=== PATIENT | male | born 1975 | race Caucasian/White ===

== ENCOUNTER 2019-09-03 20:28 | Inpatient (IN) | payer SELFPAY ==
[~2019-09-03] VITALS: Ht 188 cm; Wt 128.2 kg
--- NOTE | ~2019-09-03 | OP ---
PATIENT NAME: DEAN HERNANDEZ MEDICAL RECORD: [id number] :73 LOCATION:D.M2 D.2116 ADMISSION DATE:09/03/19 SURGEON: DINH GRAJEDA MD DATE OF OPERATION: 09/04/2019 PROCEDURES: 1. PTCA stent LAD. 2. PTCA stent LAD diagonal. 3. Left heart catheterization. 4. Selective coronary angiography. 5. Left ventriculogram. INDICATION: Non-Q-wave myocardial infarction and coronary artery disease. PROCEDURE IN DETAIL: After informed consent was obtained and after a detailed description of the risks, benefits as well as alternative therapy elected to proceed with angiogram and angioplasty. The right femoral area was prepped and draped in normal sterile fashion. Right femoral artery was cannulated via modified Seldinger technique with placement of 6-Sinhala sheath. All catheters exchanged through this sheath. FINDINGS: Left ventriculogram was performed in standard 30-degree SIMONS view, reveals preserved cardiac wall motion, ejection fraction is 60%. SELECTIVE CORONARY ANGIOGRAPHY: 1. Left main is with no significant angiographic disease. 2. Left anterior descending has a very large diagonal system that is acutely totally occluded. LAD itself has 90% to 95% stenosis. 3. The left circumflex has 90% stenosis in the mid vessel, this feeds the distal right coronary the distal right coronary artery is 100% stenosed, distal right coronary fills via left to right collateral. 4. The right coronary comes off at a very odd angle. The only thing that will engage the right coronary for future reference is an XB LAD 4 guide. PTCA STENT OF THE LAD AND LAD DIAGONAL: The LAD was addressed with a 3.0 x 22 mm Sharif diagonal with a 2.5 x 38 and 2.5 x 22, both Sharif stents. Result was 0% residual stenosis. OVERALL IMPRESSION: Successful percutaneous transluminal coronary angioplasty stent of the left anterior descending, LAD diagonal going from 100% initial stenosis to 0% residual. PLAN: PTCA stent of the left circumflex in a staged fashion due to large amount of contrast use this intervention. TRANSINT:[id number] Voice Confirmation ID: [id number] DOCUMENT ID: [id number] OPERATIVE REPORT [id number] MARYDINH LOCKETT MD CC: [id number] DICTATION DATE: 09/04/19 1257 [place] INSTRUMENT MAKER: 09/04/19 1800 ADM IN [address] [address]
--- NOTE | ~2019-09-03 | HEMODYNAMI ---
PATIENT:DEAN HERNANDEZ MEDICAL RECORD: [id number] : 73 LOCATION:[facility] D.2116 ADMISSION DATE: 09/03/19 Generatedon:09/05/201916:32 Patient name: DEAN HERNANDEZ Patient #: [id number] SSN: [id number] : 1975 Date of study: 09/05/2019 Page: Of Hemodynamic Procedure Report Patient Data Patient Demographics Procedure consent was obtained First Name: DEAN Gender: Male Last Name: MARY : 1975 Patient #: [id number] Age: 43 year(s) Race: SSN: [id number] Additional ID: [id number] Contact details Address: [address] [place] [address] State: [place] City: [facility] Zip code: [address] Past Medical History Allergies: No known allergies Admission Admission Data Admission Date: 09/03/2019 Admission Time: 21:41 Arrival Date: 10/03/2019 Arrival Time: 21:41 Admit Source: Other Insurance Payor: None Room #: D.2116 [facility] #: [id number] Height (in.): 74.02 BSA: 2.52 (m2) Height (cm.): 188 BMI: 36.5 (kg/m2) Weight (lbs.): 284.4 Weight (kg.): 129 Lab Results Lab Result Date: 09/05/2019 Lab Result Time: 0:00 Biochemistry Name Units Result Min Max BUN mg/dl 14 --(--*-)-- 7 18 Creatinine mg/dl 1 --(--*-)-- 0.6 1.3 eGFR ml/min 85.70077 -*(----)-- 90 120 NONAFRICAN CBC Name Units Result Min Max Hemoglobin g/dl 13.8 --(*---)-- 13.5 17.5 Procedure Procedure Types Cath Procedure Diagnostic Procedure Sedation Charges Moderate Sedation up to 15 minutes PCI Procedure Coronary Stent Coronary Stent Initial Hemochron ACT Test Procedure Description Procedure Date Procedure Date: 09/05/2019 Procedure Start Time: 16:19 Procedure End Time: 16:27 Procedure Staff Name Function Emeterio Garnica MD Performing Physician Mariajose Hoyos RT Monitor Star Urias RT Administrative Representative Gloria Gunderson RT Scrub France Deras RN Nurse Procedure Data Cath Procedure Fluoroscopy Diagnostic fluoroscopy Total fluoroscopy Time: 1.7 time: 1.7 min min Diagnostic fluoroscopy Total fluoroscopy dose: 344 dose: 344 mGy mGy Contrast Material Contrast Material Type Amount (ml) Isovue 300 64 Entry Location Entry Primary Successful Side Size Upsize Upsize Entry Closure Succes sful Closure Location (Fr) 1 (Fr) 2 (Fr) Remarks Device Remarks Femoral Left 6 Fr Exoseal artery Short Estimated blood loss: 10 ml Procedure Complications No complications Procedure Medications Medication Administration Route Dosage Oxygen etCO2 Nasal cannula 2 l/min Lidocaine 2% added to field 20 Heparin Flush Bag added to field 2 bags (1000units/500ml NS) 0.9% NaCl I.V. 100 ml/hr Versed I.V. 2 mg Fentanyl I.V. 100 mcg Heparin Bolus I.V. 4000 units Versed I.V. 1 mg Fentanyl I.V. 50 mcg Hemodynamics Rest BSA: 2.52 (m2) HGB: 13.8 (g/dl) O2 Consumption: Estimated: 312.2 (ml/min) O2 Con sumption indexed: Estimated:123.89 (ml/min/m) Heart Rate: 77 (bpm) Snapshots Pre Cath Intra NCS Post Cath Vital Signs Time Heart Resp SPO2 etCO2 NIBP (mmHg) Rhythm Pain Sedation Rate (ipm) (%) (mmHg) Status Level (bpm) 15:37:39 76 18 94 0 154/91(125) NSR 0 (11) 10(A) , No pain 15:41:55 79 13 93 0 147/95(124) NSR 0 (11) 10(A) , No pain 15:46:09 78 16 95 0 149/94(118) NSR 0 (11) 10(A) , No pain 15:50:25 78 15 95 0 152/96(114) NSR 0 (11) 10(A) , No pain 15:54:41 79 11 95 0 170/99(131) NSR 0 (11) 10(A) , No pain 15:58:53 81 14 94 15 150/83(134) NSR 0 (11) 10(A) , No pain 16:03:13 78 18 97 19.5 161/83(102) NSR 0 (11) 10(A) , No pain 16:07:31 72 18 97 33.9 142/89(116) NSR 0 (11) 10(A) , No pain 16:11:47 75 13 96 33.9 135/85(114) NSR 0 (11) 10(A) , No pain 16:16:52 75 13 96 32.4 130/86(113) NSR 0 (11) 10(A) , No pain 16:21:02 75 12 98 33.1 138/88(118) NSR 0 (11) 9(A) , No pain 16:25:16 78 12 94 32.4 141/85(112) NSR 0 (11) 9(A) , No pain 16:31:39 72 14 95 25.6 139/91(115) NSR 0 (11) 10(A) , No pain Medications Time Medication Route Dose Verified Delivered Reason Notes Effectiveness by by 15:49:04 Oxygen etCO2 2 Emeterio Buffie used for Nasal l/min Nahun Deras RN procedure cannula 15:49:11 Lidocaine 2% added 20ml Emeterio Emeterio for local to vial Nahun Garnica MD anesthetic field 15:49:16 Heparin Flush added 2 Emeterio Emeterio used for Bag to bags Nahun Garnica MD procedure (1000units/500ml field NS) 15:49:24 0.9% NaCl I.V. 100 Emeterio Calixtoie Per physician ml/hr Nahun Deras RN 16:15:07 Versed I.V. 2 mg Emeterio Buffie for sedation Nahun Deras RN 16:15:14 Fentanyl I.V. 100 Emeterio Buffie for sedation mcg Nahun Deras RN 16:22:59 Heparin Bolus I.V. 4000 Emeterio Buffie for verif ied units Nahun Deras RN anticoagulation with dr garnica 16:24:08 Versed I.V. 1 mg Emeterio Buffie for sedation Nahun Deras RN 16:24:12 Fentanyl I.V. 50 Emeterio [place] for sedation mcg Nahun Deras RN Procedure Log Time Note 15:23:34 Diagnostic Cath Status : Elective 15:24:15 Informed consent obtained and on chart 15:25:14 Admit Source: Other 15:25:16 Arrival Date: 10/03/2019 9:41:00 PM 15:25:38 Insurance Payor : None 15:25:49 Patient Height : 74.02 inches 15:25:54 Patient Weight : 284.4 lbs 15::19 Lab Result : Hemoglobin 13.8 g/dl 15:: Lab Result : eGFR NONAFRICAN 85.66818 ml/min 15::19 Lab Result : BUN 14 mg/dl 15:: Lab Result : Creatinine 1 mg/dl 15::34 Procedure Status Urgent Heart Cath (IP). 15:36:10 Star Urias RT(R) sent for patient. Start room use. 15:36:12 Time tracking: Regular hours (M-F 7:00 - 5:00) 15:36:17 Plan of Care:Hemodynamics will remain stable., Cardiac rhythm will remain stable., Comfort level will be maintained., Respiratory function will remain adequate., Patient/ family verbilizes understanding of procedure., Procedure tolerated without complication., Recovers from procedure without complications.. 15:36:26 Patient received from Med II to CCL 2 Alert and oriented. Tansferred to table in Supine position. 15:36:29 Warm blankets applied, and cora hugger turned on for patient comfort. 15:36:30 Correct patient and procedure confirmed by team. 15:36:30 ECG and BP/O2 sat monitors applied to patient. 15:36:34 Vital chart was started 15:36:37 Baseline sample Acquired. 15:36:42 Rhythm: sinus rhythm 15:36:44 Full Disclosure recording started 15:36:54 H&P Date Dictated: 09/04/2019 Within 30 days and on chart., H&P Addendum completed by physician on day of procedure. (MUST COMPLETE FOR ALL OUTPATIENTS). 15:37:32 Pre-procedure instructions explained to patient. 15:37:38 Patient NPO since Midnight. 15:37:44 Patient allergic to No known allergies 15:37:48 Is the patient allergic to Iodine/contrast media? No. 15:37:49 Was the patient premedicated? Yes 15:37:50 Is patient on blood thinner?Yes 15:37:54 ACC The patient was administered the following blood thiners within the last 24 hours: ACCPlavix 15:39:33 Patient diabetic? Yes. 15:39:36 If diabetic: On Metformin? Yes 15:39:44 If on Metformin: Last Dose? 09/03/2019 15:39:51 Snore? Yes 15:39:52 Sleep apnea? No 15:40:00 Dentures? No ? 15:40:10 IV patent on arrival in left forearm with 0.9% NaCl at [facility]. 15:40:16 Lab results completed and on chart. 15:40:23 Stress Test: no; N/A ? 15:40:28 Risk of Mortality: 11.4 15:40:31 Risk of blood transfusion: 1.9 15:40:36 Risk of KATHERINE: 6.6. 15:40:40 Left groin area was prepped with chlora-prep and draped in sterile fashion 15:40:41 Alarms reviewed by R. N. 15:40:42 Sharps counted by scrub and verified by R.N. 15:40:45 Physician paged 15:40:51 Maximum allowable contrast dose (3.7 X eGFR X 0.75)235 ml. 15:40:55 2) 60-89 Mildly reduced kidney function, and other findings (as for stage 1) point to kidney disease. 15:49:04 Oxygen 2 l/min etCO2 Nasal cannula was administered by France Deras RN; used for procedure; Verbal order read back and verified. 15:49:11 Lidocaine 2% 20ml vial added to field was administered by Emeterio Garnica MD; for local anesthetic; Verbal order read back and verified. 15:49:16 Heparin Flush Bag (1000units/500ml NS) 2 bags added to field was administered by Emeterio Garnica MD; used for procedure; Verbal order read back and verified. 15:49:24 0.9% NaCl 100 ml/hr I.V. was administered by France Deras RN; Per physician; Verbal order read back and verified. 16:12:54 Physician arrived 16:12:54 --------ALL STOP TIME OUT------ 16:12:56 Final Timeout: patient, procedure, and site verified with staff and physician. All members of the team are in agreement. 16:12:59 Left groin site verified by team. 16:13:04 Fire Safety Assessment: A--An alcohol-based skin anteseptic being used preoperatively., C--Open oxygen or nitrous oxide is being used., D--An ESU, laser, or fiber-optic light is being used. 16:13:18 Physical assessment completed. ASA score P 4 - A patient with severe systemic disease that is a constant threat to life as per Emeterio Garnica MD. 16:13:23 Sedation plan: IV Moderate Sedation Medication:Versed, Fentanyl 16:13:58 Use device set Femoral Dx 16:14:22 Medline Cath Pack ([id number]) opened to sterile field. 16:14:25 ACIST Hand Control (79578) opened to sterile field. 16:14:29 ACIST Manifold (18677) opened to sterile field. 16:14:32 Tegaderm 4 x 4 (1626W) opened to sterile field. 16:14:36 EMERALD Guide Wire (502-231) opened to sterile field. 16:14:36 SHEATH 6FR [place] (GXI421) opened to sterile field. 16:14:37 CHOICE PT Extra Support 182cm wire ([id number]) opened to sterile field. 16:14:38 INFLATOR Merit BasixCompak (XR8408) opened to sterile field. 16:15:07 Versed 2 mg I.V. was administered by France Deras RN; for sedation; Verbal order read back and verified. 16:15:14 Fentanyl 100 mcg I.V. was administered by France eDras RN; for sedation; Verbal order read back and verified. 16:18:10 Zero performed for pressure channel P1 16:19:04 Procedure started. 16:19:42 Local anesthetic to left femerol artery with Lidocaine 2% by Emeterio Garnica MD.INITIAL ACCESS ONLY 16:19:52 A 6 Fr Short sheath was inserted into the Left Femoral artery 16:20:36 GUIDE 6FR EBU 4.5 catheter ([id number]) opened to sterile field. 16:20:50 6 Fr EBU 4.5 guide catheter was inserted over the wire 16:21:54 choice pt ex wire advanced. 16:22:59 Heparin Bolus 4000 units I.V. was administered by France Deras RN; for anticoagulation; verified with dr garnica Verbal order read back and verified. 16:23:15 Wire advanced across lesion. 16:24:08 Versed 1 mg I.V. was administered by France Deras RN; for sedation; Verbal order read back and verified. 16:24:12 Fentanyl 50 mcg I.V. was administered by France Deras RN; for sedation; Verbal order read back and verified. 16:24:39 Place stent Inflation Number: 1 A REBECCA RX 2.75 x 38 stent ([id number]) was prepped and advanced across the Mid CX 90. The stent was deployed at 13 BRANDEN for 0:16 (min:sec) . 16:25:04 EXOSEAL 6Fr (EX600) opened to sterile field. 16:25:10 ACT drawn and resulted at 189 seconds. (normal therapeutic range 180-240 seconds). 16:25:22 Sheath removed intact; hemostasis achieved with Exoseal to the Left Femoral artery. 16:25:24 Procedure ended.(Physican Out) 16:25:43 Fluoroscopy time 01.70 minutes. 16:25:47 Fluoroscopy dose: 344 mGy 16:25:47 Flurop Dose total: 344 16:25:52 Dose Area Product 38718 mGy/cm. 16:25:56 Contrast amount:Isovue 300 64ml. 16:26:01 Maximum allowable dose exceeded? No. 16:26:03 Sharps counted by scrub and verified by R.N. 16:26:05 Insertion/operative site no bleeding no hematoma. 16:26:10 Post left femerol artery:stable 16:26:14 Post Procedure Pulses reassessed and unchanged 16:26:21 Post-procedure physical assessment completed. ASA score P 3 - A patient with severe systemic disease as per Emeterio Garnica MD. 16:26:24 Post procedure rhythm: unchanged. 16:26:29 Estimated blood loss: 10 ml 16:26:30 Post procedure instruction explained to patient.Patient verbalizes understanding. 16:27:06 Procedure type changed to Cath procedure, Diagnostic procedure, Sedation Charges, Moderate Sedation up to 15 minutes, PCI procedure, Coronary Stent, Coronary Stent Initial, Hemochron ACT Test 16:27:08 Procedure and supply charges have been captured, reviewed, submitted and are correct. 16:27:31 Procedure Complication : No complications 16::34 Vital chart was stopped 16:27:38 [facility] Findings: MVD- PCI performed (see procedure note) 16:27:41 See physician's report for complete and final results. 16:27:47 Report given to [facility]. 16:27:54 Patient transfered to [facility] with Bed. 16:27:56 Procedure ended. 16:27:56 Full Disclosure recording stopped 16:28:02 End room use (Document Last) 16:30:48 ACC-PCI Only Patient was given prescriptions, or instructed by Emeterio Garnica MD to start/continue the following medications upon discharge: Plavix Intervention Summary Intervention Notes Time ActionType Lesion and Equipment Used Action# Pressure Duration Attributes 16:24:39 Place stent Mid CX REBECCA RX 2.75 x 1 13 00:16 38 stent ([id number]) Device Usage Item Name Manufacture Quantity Catalog Number Hospital Part Current M inimal Lot# / Charge Number Stock Stock Serial# Code Medline Cath Medline 1 [id number] 19329 990374 5 Pack ([id number]) ACIST Hand Acist 1 94279 583652 316630 406920 5 Control Medical (92299) Systems Inc ACIST Manifold Acist 1 55219 110911 687504 384388 5 (80590) Medical Systems Inc Tegaderm 4 x 4 3M 1 1626W 241092 221374 008387 5 (1626W) EMERALD Guide Cardinal 1 502-455 909372 635927 510274 5 Wire (502-455) Health SHEATH 6FR Terumo 1 [id number] 193625 510090 650294 4 0 [place] (GLJ838) CHOICE PT [place] 1 [id number] 753517 084086 820926 5 Extra Support Scientific 182cm wire ([id number]) INFLATOR Merit Merit 1 [id number] 287834 162277 883991 1 5 K-MOTION Interactive Medical (AE0985) GUIDE 6FR EBU Medtronic 1 [id number] 305179 60211 856051 0 4.5 catheter (SD8GUD91) REBECCA RX 2.75 x Medtronic 1 [id number] 850748 1256787 249710 5 [id number] 38 stent ([id number]) EXOSEAL 6Fr Cardinal 1 EX600 921298 290812 922461 1 0 (EX600) Health Signature Audit [place] Stage Time Signature Unsigned Intra-Procedure 09/05/2019 Mariajose Hoyos 4:31:06 PM RT(R) Intra-Procedure 09/05/2019 France Deras RN 4:31:40 PM Intra-Procedure 09/05/2019 Emeterio Garnica 4:32:07 PM MD Signatures Performing Physician : Signature : Emeterio Garnica MD Date : Time : Monitor : Mariajose Hoyos Signature : RT Date : Time : Nurse : France Deras RN Signature : Date : Time : [address] [address]
--- NOTE | ~2019-09-03 | HEMODYNAMI ---
PATIENT:DEAN HERNANDEZ MEDICAL RECORD: [id number] : 73 LOCATION:[facility] D.2116 ADMISSION DATE: 09/03/19 Generatedon:09/04/201913:01 Patient name: DEAN HERNANDEZ Patient #: [id number] SSN: D OB: 1975 Date of study: 09/04/2019 Page: Of Hemodynamic Procedure Report Patient Data Patient Demographics Procedure consent was obtained First Name: DEAN Gender: Male Last Name: MARY : 1975 Patient #: [id number] Age: 43 year(s) Race: Unknown Additional ID: [id number] Contact details Address: [address] [place] [address] State: [place] City: [facility] Zip code: [address] Admission Admission Data Admission Date: 09/03/2019 Admission Time: 21:41 Room #: D.2116 Procedure Procedure Types Cath Procedure Diagnostic Procedure LHC LHC w/Coronaries Sedation Charges Moderate Sedation up to 15 minutes Moderate Sedation up to 45 minutes PCI Procedure Coronary Stent Coronary Stent Initial Coronary Stent Additional Procedure Description Procedure Date Procedure Date: 09/04/2019 Procedure Start Time: 12:06 Procedure End Time: 12:56 Procedure Staff Name Function Emeterio Garnica MD Performing Physician Gloria Gunderson RT Monitor Erasto Bañuelos RN Nurse Mariajose Hoyos RT Scrub Procedure Data Cath Procedure Fluoroscopy Diagnostic fluoroscopy Total fluoroscopy Time: time: 17.2 min 17.2 min Diagnostic fluoroscopy Total fluoroscopy dose: dose: 3239 mGy 3239 mGy Contrast Material Contrast Material Type Amount (ml) Isovue 300 384 Entry Location Entry Primary Successful Side Size Upsize Upsize Entry Closure Samuel ccessful Closure Location (Fr) 1 (Fr) 2 (Fr) Remarks Device Remarks Radial Right 6 Fr Mechanical artery Short Compression Femoral Right 6 Fr Exoseal artery Short Estimated blood loss: 5 ml Diagnostic catheters Device Type Used For End Catheter Placement DIAGNOSTIC [place] 110cm 5 Multi-vessel Fr catheter ([id number]) Angiography DIAGNOSTIC AR2 MOD 5 Fr Right Coronary catheter (698361S) Angiography DIAGNOSTIC 3DRC 5Fr Right Coronary catheter (285257L) Angiography DIAGNOSTIC AR2 MOD 5 Fr Right Coronary catheter (454134U) Angiography DIAGNOSTIC AL2 5Fr Right Coronary catheter ([id number]) Angiography Procedure Complications No complications Procedure Medications Medication Administration Route Dosage Oxygen etCO2 Nasal cannula 2 l/min Heparin Flush Bag added to field 2 bags (1000units/500ml NS) 0.9% NaCl I.V. 100 ml/hr Lidocaine 2% added to field 20 Radial Cocktail added to field 1 syringe (Verapamil 2mg/Nitro 400mcg/Heparin 1500units) Fentanyl I.V. 50 mcg Versed I.V. 1 mg Fentanyl I.V. 50 mcg Versed I.V. 1 mg Radial Cocktail I.A. 1 syringe (Verapamil 2mg/Nitro 400mcg/Heparin 1500units) Fentanyl I.V. 50 mcg Fentanyl I.V. 50 mcg Heparin Bolus I.V. 5000 units Hemodynamics Rest Heart Rate: 85 (bpm) Pressure Samples Time Site Value (mmHg) Purpose Heart Use Rate(bpm) 12:10 LV 105/21,37 Snapshot 89 Snapshots Pre Cath Intra NCS Post Cath Vital Signs Time Heart Resp SPO2 etCO2 NIBP (mmHg) Rhythm Pain Sedation Rate (ipm) (%) (mmHg) Status Level (bpm) 11:55:08 84 16 95 0 154/102(127) NSR 0 (11) 10(A) , No pain 11:59:32 85 16 94 0 154/101(126) NSR 0 (11) 10(A) , No pain 12:03:54 84 17 93 0 151/94(117) NSR 0 (11) 10(A) , No pain 12:08:16 85 17 92 39.6 143/90(124) NSR 0 (11) 10(A) , No pain 12:12:28 89 17 94 41.8 136/84(111) NSR 0 (11) 9(A) , No pain 12:16:42 84 16 95 8.2 130/81(109) NSR 0 (11) 9(A) , No pain 12:21:00 78 16 93 15.6 133/74(103) NSR 0 (11) 9(A) , No pain 12:25:23 81 16 95 9.7 124/77(104) NSR 0 (11) 9(A) , No pain 12:29:38 79 19 94 30.6 130/81(101) NSR 0 (11) 9(A) , No pain 12:33:59 80 16 94 29.8 131/79(102) NSR 0 (11) 9(A) , No pain 12:38:17 80 17 95 38.1 124/78(111) NSR 0 (11) 9(A) , No pain 12:42:35 80 17 95 41.1 130/74(97) NSR 0 (11) 9(A) , No pain 12:46:55 78 17 96 29.1 137/79(106) NSR 0 (11) 9(A) , No pain 12:51:15 79 17 96 43.3 141/80(109) NSR 0 (11) 9(A) , No pain 12:54:34 78 11 96 40.3 139/80(110) NSR 0 (11) 9(A) , No pain Medications Time Medication Route Dose Verified Delivered Reason Not es Effectiveness by by 11:54:18 Oxygen etCO2 2 l/min Emeterio Maurer Per physician Nasal Nahun Bañuelos RN cannula 11:54:28 Heparin Flush added 2 bags Emeterio Maurer used for Bag to Nahun Bañuelos RN procedure (1000units/500ml field NS) 11:54:39 0.9% NaCl I.V. 100 Emeterio Maurer Per physician ml/hr Nahun Bañuelos RN 11:54:47 Lidocaine 2% added 20ml Emeterio Maurer for local to vial Nahun Bañuelos RN anesthetic field 12:05:50 Radial Cocktail added 1 Emeterio Maurer used for (Verapamil to syringe Nahun Bañuelos RN procedure 2mg/Nitro field 400mcg/Heparin 1500units) 12:05:59 Fentanyl I.V. 50 mcg Emeterio Maurer for sedation Nahun Bañuelos RN 12:06:07 Versed I.V. 1 mg Emeterio Maurer for sedation Nahun Bañuelos RN 12:09:28 Fentanyl I.V. 50 mcg Emeterio Maurer for sedation Nahun Bañuelos RN 12:09:33 Versed I.V. 1 mg Emeterio Maurer for sedation Nahun Bañuelos RN 12:09:41 Radial Cocktail I.A. 1 Emeterio Storm for (Verapamil syringe Nahun Garnica MD vasodilation 2mg/Nitro 400mcg/Heparin 1500units) 12:28:50 Fentanyl I.V. 50 mcg Emeterio Maurer for sedation Nahun Bañuelos RN 12:31:43 Fentanyl I.V. 50 mcg Emeterio Maurer for sedation Nahun Bañuelos RN 12:31:55 Heparin Bolus I.V. 5000 Emeterio Maurer for units Nahun Bañuelos RN anticoagulation Procedure Log Time Note 11:27:32 Procedure Status Urgent Heart Cath (IP). 11:27:36 Gloria Gunderson RT(R) sent for patient. Start room use. 11:27:39 Time tracking: Call back (After hours or weekends) 11:27:48 Plan of Care:Hemodynamics will remain stable., Cardiac rhythm will remain stable., Comfort level will be maintained., Respiratory function will remain adequate., Patient/ family verbilizes understanding of procedure., Procedure tolerated without complication., Recovers from procedure without complications.. 11:28:58 2) 60-89 Mildly reduced kidney function, and other findings (as for stage 1) point to kidney disease. 11:29:25 Maximum allowable contrast dose (3.7 X eGFR X 0.75)235 ml. 11:42:18 Risk of Mortality: 11.4 11:42:23 Risk of blood transfusion: 1.9 11:42:27 Risk of KATHERINE: 6.6 11:47:00 Patient received from Med II to CCL 1 Alert and oriented. Tansferred to table in Supine position. 11:47:03 Signed procedure consent form obtained from patient. 11:47:04 Warm blankets applied, and cora hugger turned on for patient comfort. 11:47:04 Correct patient and procedure confirmed by team. 11:47:05 ECG and BP/O2 sat monitors applied to patient. 11:53:47 Vital chart was started 11:53:49 Baseline sample Acquired. 11:53:53 Rhythm: sinus rhythm 11:53:55 Full Disclosure recording started 11:54:18 Oxygen 2 l/min etCO2 Nasal cannula was administered by Erasto Bañuelos RN; Per physician; Verbal order read back and verified. 11:54:28 Heparin Flush Bag (1000units/500ml NS) 2 bags added to field was administered by Erasto Bañuelos RN; used for procedure; Verbal order read back and verified. 11:54:39 0.9% NaCl 100 ml/hr I.V. was administered by Erasto Bañuelos RN; Per physician; Verbal order read back and verified. 11:54:47 Lidocaine 2% 20ml vial added to field was administered by Erasto Bañuelos RN; for local anesthetic; Verbal order read back and verified. 11:57:54 Baseline sample Acquired. 12:00:51 H&P Date Dictated: 09/04/2019 New H&P dictated by physician.. 12:00:53 Pre-procedure instructions explained to patient. 12:00:54 Pre-op teaching completed and patient verbalized understanding. 12:00:55 Family unavailable. 12:01:03 Is the patient allergic to Iodine/contrast media? No. 12:01:05 Was the patient premedicated? No 12:01:06 Is patient on blood thinner?Yes 12:01:10 ACC The patient was administered the following blood thiners within the last 24 hours: ACCAspirin, ACCPlavix 12:01:12 Patient diabetic? Yes. 12:01:18 If diabetic: On Metformin? Yes 12:01:27 If on Metformin: Last Dose? 09/02/2019 12:01:31 Previous problem with sedation/anesthesia? No ? 12:01:33 Snore? Yes 12:01:34 Sleep apnea? No 12:01:35 Deviated septum? No 12:01:35 Opens mouth fully? Yes 12:01:36 Sticks out tongue? Yes 12:01:38 Airway obstruction? No ? 12:01:41 Dentures? No ? 12:01:46 Pre procedure: right dorsailis pedis pulse 2+ Normal; easily identifiable; not easily obliterated 12:01:48 Pre procedure: left dorsailis pedis pulse 2+ Normal; easily identifiable; not easily obliterated 12:01:50 Patient pain scale 0/10 ?. 12:01:56 IV patent on arrival in left forearm with 0.9% NaCl at [facility]. 12:02:01 Lab results completed and on chart. 12:02:06 Right Radial & Right Groin area was prepped with chlora-prep and draped in sterile fashion 12:02:07 Alarms reviewed by R. N. 12:02:07 Sharps counted by scrub and verified by Blade 12:02:10 Physician arrived 12:02:10 --------ALL STOP TIME OUT------ 12:02:11 Final Timeout: patient, procedure, and site verified with staff and physician. All members of the team are in agreement. 12:02:13 Right Radial & Right Groin site verified by team. 12:02:17 Fire Safety Assessment: A--An alcohol-based skin anteseptic being used preoperatively., C--Open oxygen or nitrous oxide is being used., D--An ESU, laser, or fiber-optic light is being used. 12:02:20 Physical assessment completed. ASA score P 2 - A patient with mild systemic disease as per Emeterio Garnica MD. 12:02:23 Sedation plan: IV Moderate Sedation Medication:Versed, Fentanyl 12:02:26 Use device set Radial Dx or PCI 12:02:28 ACIST Syringe (78868) opened to sterile field. 12:02:28 Medline Cath Pack ([id number]) opened to sterile field. 12:02:29 Bag Decanter (2002S) opened to sterile field. 12:02:29 ACIST Hand Control (33714) opened to sterile field. 12:02:29 ACIST Manifold (05636) opened to sterile field. 12:02:30 Tegaderm 4 x 4 (1626W) opened to sterile field. 12:02:30 MBrace Wrist Support (297459754) opened to sterile field. 12:02:33 SHEATH 6FR RAIN (3246740) opened to sterile field. 12:02:34 EMERALD Guide Wire (561-262) opened to sterile field. 12:05:50 Radial Cocktail (Verapamil 2mg/Nitro 400mcg/Heparin 1500units) 1 syringe added to field was administered by Erasto Bañuelos RN; used for procedure; Verbal order read back and verified. 12:05:57 Procedure started. 12:05:59 Fentanyl 50 mcg I.V. was administered by Erasto Bañuelos RN; for sedation; Verbal order read back and verified. 12:06:01 Local anesthetic to right radial artery with Lidocaine 2% by Emeterio Garnica MD.INITIAL ACCESS ONLY 12:06:07 Versed 1 mg I.V. was administered by Erasto Bañuelos RN; for sedation; Verbal order read back and verified. 12:06:43 A 6 Fr Short sheath was inserted into the Right Radial artery 12:07:46 Zero performed for pressure channel P1 12:08:35 A DIAGNOSTIC [place] 110cm 5 Fr catheter (353686) was advanced over the wire and used for Multi-vessel Angiography. 12:09:28 Fentanyl 50 mcg I.V. was administered by Erasto Bañuelos RN; for sedation; Verbal order read back and verified. 12:09:33 Versed 1 mg I.V. was administered by Erasto Bañuelos RN; for sedation; Verbal order read back and verified. 12:09:41 Radial Cocktail (Verapamil 2mg/Nitro 400mcg/Heparin 1500units) 1 syringe I.A. was administered by Emeterio Garnica MD; for vasodilation; Verbal order read back and verified. 12:10:49 LV hemodynamics recorded. 12:10:50 LV gram done using SIMONS 12:10:52 Injector settings: Ml/sec: 5, Volume: 15, 12:10:58 EF : 55 % 12:11:01 LCA angiography performed. 12:11:04 Injector settings: Ml/sec: 3, Volume: 6, 12:13:56 Catheter removed. 12:13:59 A DIAGNOSTIC AR2 MOD 5 Fr catheter (768183O) was advanced over the wire and used for Right Coronary Angiography. 12:14:42 GUIDE 6FR XBLAD 4.0 catheter ([id number]) opened to sterile field. 12:14:42 CHOICE PT Extra Support 182cm wire ([id number]) opened to sterile field. 12:14:43 INFLATOR Merit BasixCompak (XT2235) opened to sterile field. 12:17:09 Catheter removed. unable to cannulate vessel. 12:17:29 A DIAGNOSTIC 3DRC 5Fr catheter (737624K) was advanced over the wire and used for Right Coronary Angiography. 12:19:01 Catheter removed. unable to cannulate vessel. 12:19:13 Local anesthetic to right femoral artery with Lidocaine 2% by Emeterio Garnica MD.ADDITIONAL ACCESS 12:19:25 SHEATH 6FR Butler (EQG110) opened to sterile field. 12:19:36 A 6 Fr Short sheath was inserted into the Right Femoral artery 12:20:38 A DIAGNOSTIC AR2 MOD 5 Fr catheter (082883S) was advanced over the wire and used for Right Coronary Angiography. 12:20:54 Catheter removed. unable to cannulate vessel. 12:21:26 A DIAGNOSTIC AL2 5Fr catheter (046680Z) was advanced over the wire and used for Right Coronary Angiography. 12:23:01 Catheter removed. unable to cannulate vessel. 12:24:43 GUIDE 6FR 3DRIGHT catheter (CH50IDMEAL) opened to sterile field. 12:25:02 6 Fr 3d right guide catheter was inserted over the wire 12:25:06 Catheter removed. unable to cannulate vessel. 12:25:21 GUIDE 6FR AL 2.0 catheter (CY5LK53) opened to sterile field. 12:26:13 6 Fr al 2 guide catheter was inserted over the wire 12:27:00 Guide Catheter removed. unable to cannulate vessel. 12:27:30 GUIDE 6FR MB 2 catheter (LA6MB2) opened to sterile field. 12:28:04 Guide Catheter removed. unable to cannulate vessel. 12:28:17 GUIDE 6FR LCB catheter (LA6LCB) opened to sterile field. 12:28:50 Fentanyl 50 mcg I.V. was administered by Erasto Bañuelos RN; for sedation; Verbal order read back and verified. 12:29:04 6 Fr lcb guide catheter was inserted over the wire 12:29:51 Guide Catheter removed. unable to cannulate vessel. 12:29:57 6 Fr xblad 4 guide catheter was inserted over the wire 12:30:19 ACCDominant side:Co-Dominant 12:30:38 RCA angiography performed. ::43 Injector settings: Ml/sec: 3, Volume: 6, ::43 Fentanyl 50 mcg I.V. was administered by Erasto Bañuelos RN; for sedation; Verbal order read back and verified. 12:31:55 Heparin Bolus 5000 units I.V. was administered by Erasto Bañuelos RN; for anticoagulation; Verbal order read back and verified. 12:32:20 choice pt wire advanced. 12:34:36 Inflate balloon Inflation number: 1 A EUPHORA 2.5 x 30 Balloon ([id number]) was prepped and advanced across the 1st Diag 100, then inflated to 13 BRANDEN for 0:10 (min:sec) 0. 12:34:42 Balloon removed over the wire. 12:36:00 Place stent Inflation Number: 2 A REBECCA RX 2.5 x 38 stent ([id number]) was prepped and advanced across the 1st Diag 100. The stent was deployed at 11 BRANDEN for 0:10 (min:sec) 0. 12:36:30 Stent catheter was removed intact over wire. 12:36:54 CHOICE PT Extra Support 182cm wire ([id number]) opened to sterile field. 12:37:48 2nd choice pt extra support wire advanced down lad 12:41:12 both choice pt wires removed 12:42:22 WHISPER 190cm wire ([id number]) opened to sterile field. 12:42:35 whisper wire advanced. 12:45:48 Place stent Inflation Number: 1 A REBECCA RX 3.0 x 22 stent ([id number]) was prepped and advanced across the Prox LAD 90. The stent was deployed at 17 BRANDEN for 0:10 (min:sec) 0. 12:46:58 Stent catheter was removed intact over wire. 12:47:06 Wire redirected to diagonal. 12:47:31 ACT drawn and resulted at OOR seconds. (normal therapeutic range 180-240 seconds). 12:48:12 Inflation number: 3 The EUPHORA 2.5 x 30 Balloon ([id number]) was reinflated across the 1st Diag 0, to 13 BRANDEN for 0:10 (min:sec) . 12:49:03 Balloon removed over the wire. 12:50:02 Place stent Inflation Number: 4 A REBECCA RX 2.75 x 22 stent ([id number]) was prepped and advanced across the 1st Diag 95. The stent was deployed at 13 BRANDEN for 0:10 (min:sec) 0. 12:51:34 ZEPHYR REGULAR TR BAND (815873) opened to sterile field. 12:51:45 Tegaderm 4 x 4 (1626W) opened to sterile field. 12:51:46 EXOSEAL 6Fr (EX600) opened to sterile field. 12:52:47 Stent catheter was removed intact over wire. 12:52:48 Wire removed. 12:52:48 Guide catheter removed. 12:52:57 Sheath removed intact; hemostasis achieved with Mechanical Compression to the Right Radial artery. 12:53:05 Sheath removed intact; hemostasis achieved with Exoseal to the Right Femoral artery. 12:53:23 Procedure ended.(Physican Out) 12:53:40 Fluoroscopy time 17.20 minutes. 12:53:45 Fluoroscopy dose: 3239 mGy 12:53:45 Flurop Dose total: 3239 12:53:57 Dose Area Product 183878 mGy/cm. 12:54:16 Contrast amount:Isovue 300 384ml. 12:54:21 Maximum allowable dose exceeded? Yes. 12:54:32 Sharps counted by scrub and verified by R.N. 12:54:45 [place] band inflated with 10cc of air. 12:54:46 Insertion/operative site no bleeding no hematoma. 12:54:54 Post-op/insertion site Right Femoral artery dressed using a 4 x 4 and Tegaderm. 12:55:00 Post right radial artery:stable 12:55:02 Post Procedure Pulses reassessed and unchanged 12:55:04 Post procedure rhythm: unchanged. 12:55:07 Estimated blood loss: 5 ml 12:55:09 Post procedure instruction explained to patient.Patient verbalizes understanding. 12:55:09 Patient needs reinforcement of post procedure teaching. 12:55:37 Procedure type changed to Cath procedure, Diagnostic procedure, LHC, [facility] w/Coronaries, Sedation Charges, Moderate Sedation up to 15 minutes, Moderate Sedation up to 45 minutes, PCI procedure, Coronary Stent, Coronary Stent Initial, Coronary Stent Additional 12:55:38 Procedure and supply charges have been captured, reviewed, submitted and are correct. 12:55:42 Procedure Complication : No complications 12:55:45 Vital chart was stopped 12:55:47 [facility] Findings: MVD- PCI performed (see procedure note) 12:55:50 Operative report dictated upon procedure completion. 12:55:51 See physician's report for complete and final results. 12:55:53 Report given to [facility]. 12:55:55 Patient transfered to [facility] with Stretcher. 12:55:59 Procedure ended. 12:55:59 Full Disclosure recording stopped 12:56:07 ACC-PCI Only Patient was given prescriptions, or instructed by Emeterio Garnica MD to start/continue the following medications upon discharge: Plavix 12:56:09 End room use (Document Last) 12:58:03 End room use (Document Last) 12:58:32 End room use (Document Last) Intervention Summary Intervention Notes Time ActionType Lesion and Equipment Used Action# Pressure Duration Attributes 12:34:36 Inflate 1st Diag EUPHORA 2.5 x 1 13 00:10 balloon 30 Balloon ([id number]) 12:36:00 Place stent 1st Diag REBECCA RX 2.5 x 2 11 00:10 38 stent ([id number]) 12:45:48 Place stent Prox LAD REBECCA RX 3.0 x 1 17 00:10 22 stent ([id number]) 12:48:12 Reinflate 1st Diag EUPHORA 2.5 x 3 13 00:10 balloon 30 Balloon ([id number]) 12:50:02 Place stent 1st Diag REBECCA RX 2.75 x 4 13 00:10 22 stent ([id number]) Device Usage Item Name Manufacture Quantity Catalog Number Hospital Part Current M inimal Lot# / Charge Number Stock Stock Serial# Code ACIST Syringe Acist 1 81427 942807 623034 700599 2 0 (89435) Medical Systems Inc Medline Cath Medline 1 [id number] 857157 29937 206729 5 Pack ([id number]) Bag Decanter Microtek 1 2001S 627508 71206 873446 5 (2001S) Medical Inc. ACIST Hand Acist 1 48212 433275 523311 082578 5 Control Medical (98585) Systems Inc ACIST Manifold Acist 1 38138 202752 886694 281761 5 (67734) Medical Systems Inc Tegaderm 4 x 4 3M 2 1626W 574883 824002 235879 5 (1626W) MBrace Wrist Advanced 1 140-0250-00 933183 99073 938234 5 Support Vascular (747318289) Dynamics SHEATH 6FR Cardinal 1 4152423 200012 9349816 258901 5 RAIN (5848386) Health EMERALD Guide Cardinal 1 502-455 976053 360859 628700 5 Wire (482-720) Health DIAGNOSTIC Terumo 1 52-1952 730043 728856 444197 5 [place] 110cm 5 Fr catheter (063607) DIAGNOSTIC AR2 Cardinal 1 228697G 493835 961058 039074 2 0 MOD 5 Fr Health catheter (286706P) GUIDE 6FR Cardinal 1 60937455 116119 491710 807239 3 XBLAD 4.0 Health catheter (65848177) CHOICE PT Winifred 2 [id number] 329257 843216 890469 5 Extra Support Scientific 182cm wire (1276619G0) INFLATOR Merit Merit 1 MP9206 831940 380961 943725 1 5 [facility] (GV1528) DIAGNOSTIC Cardinal 1 104568P 030544 206073 872443 9 3DRC 5Fr Health catheter (085151T) SHEATH 6FR Terumo 1 JUF224 855408 202513 371771 4 0 Butler (VMO031) DIAGNOSTIC AL2 Cardinal 1 948240Q 192195 036767 124167 1 5 5Fr catheter Health (599811H) GUIDE 6FR Medtronic 1 [id number] 792820 115072 195374 1 3DRIGHT catheter ([id number]) GUIDE 6FR AL Medtronic 1 [id number] 188790 59095 894021 1 2.0 catheter (DH3KV45) GUIDE 6FR MB 2 Medtronic 1 LA6MB2 458120 60487 435028 1 catheter (LA6MB2) GUIDE 6FR LCB Medtronic 1 LA6LCB 323799 49859 352947 1 catheter (LA6LCB) EUPHORA 2.5 x Medtronic 1 [id number] 716321 367714 910896 5 [id number] 30 Balloon (CSJ7414N) REBECCA RX 2.5 x Medtronic 1 [id number] 355989 0194744 366183 5 [id number] 38 stent ([id number]) WHISPER 190cm [place] 1 [id number] 647787 273991 492785 5 wire Vascular (8911932FA) REBECCA RX 3.0 x Medtronic 1 [id number] 963969 7095111 370909 5 [id number] 22 stent ([id number]) REBECCA RX 2.75 x Medtronic 1 [id number] 417960 5001189 833458 5 [id number] 22 stent ([id number]) ZEPHYR REGULAR Cardinal 1 945242 669398 8600720 066643 5 TR BAND [employer] (357966) EXOSEAL 6Fr Cardinal 1 EX600 723617 308804 188332 1 0 (EX600) Health Signature Audit [place] Stage Time Signature Unsigned Intra-Procedure 09/04/2019 Gloria Gunderson 12:58:03 PM RT(R) Intra-Procedure 09/04/2019 Erasto Bañuelos 12:58:32 PM RN Intra-Procedure 09/04/2019 Emeterio Garnica 1:01:[address] [address]
--- NOTE | ~2019-09-03 | OP ---
PATIENT NAME: DEAN HERNANDEZ MEDICAL RECORD: [id number] :73 LOCATION:D.M2 D.2116 ADMISSION DATE:09/03/19 SURGEON: DINH GRAJEDA MD DATE OF OPERATION: 09/05/2019 PROCEDURES: 1. PTCA stent left circumflex. 2. Selective coronary angiography. INDICATION: Angina, coronary artery disease, non-Q-wave myocardial infarction. PROCEDURE IN DETAIL: After informed consent was obtained and after a detailed description of the risks, benefits as well as alternative therapies, the patient elected to proceed with angiogram and angioplasty. The left femoral area was prepped and draped in normal sterile fashion. Left femoral artery was cannulated via modified Seldinger technique with placement of 6-[place] sheath. All catheters exchanged through this sheath. FINDINGS: The left circumflex has 90% stenosis throughout the first obtuse marginal. This was addressed with a 2.75 x 38 mm [place]. Result was 0% residual stenosis. OVERALL IMPRESSION: Successful percutaneous transluminal angioplasty stent of the left circumflex going from 90% initial stenosis to 0% residual. TRANSINT:[id number] Voice Confirmation ID: [id number] DOCUMENT ID: [id number] DINH GRAJEDA MD CC: [id number] DICTATION DATE: 09/05/19 1634 PERSONAL SECURITY SPECIALIST: 09/05/19 1819 ADM IN [facility] [address] [place] [address]
--- NOTE | ~2019-09-03 | CN ---
PATIENT NAME:DEAN HERNANDEZ MEDICAL RECORD: [id number] : 73 LOCATION:[facility] D.2116 ADMIT DATE: 09/03/19 ACCOUNT: [id number] CONSULTING PHYSICIAN: DINH GRAJEDA MD REFERRING PHYSICIAN: ADEOLA MCCARTNEY MD DATE OF CONSULTATION: 09/04/2019 CARDIOLOGY CONSULTATION DIAGNOSES: 1. Non-Q-wave myocardial infarction. 2. Coronary artery disease. 3. Hypertension. 4. Hyperlipidemia. 5. Ewo-ixhbgpw-xpkcxbvaz diabetes. HISTORY OF PRESENT ILLNESS: Mr. Hernandez has no history of ischemic heart disease. He had an episode of chest pain last week, presented to the Emergency Room and was told that this was possibly food poisoning. He did well until last night and had a recurrent episode of severe chest discomfort, radiation to his left arm. His troponin is positive for non-Q-wave myocardial infarction. He is not having any pain now. He did have some ventricular dysrhythmias overnight, was given Lopressor. He has a history of hypertension, hyperlipidemia as well as clh-ufnsgju-qxrwjwyst diabetes. PHYSICAL EXAMINATION: CONSTITUTIONAL/GENERAL APPEARANCE: Well nourished, well developed, appears stated age. EYES: Lids and conjunctivae noninjected. No discharge. No pallor. ENT: Lips within normal limit. No cyanosis. No pallor. NECK: Carotid arteries, bilateral normal upstroke. No bruits. No thrills. No jugular venous pressure or distention. CERVICAL LYMPH NODES: Nontender. Nonenlarged. THYROID: Not enlarged. No nodules. CARDIOVASCULAR: Precordial exam, nondisplaced. No heaves or pericardial thrills. Rate and rhythm, regular. Heart sounds, normal S1, normal S2. No S3, no gallop, no rub. Systolic murmur, not heard. Diastolic murmur, not heard. RESPIRATORY: Respiratory effort, unlabored. Normal curvature. No thoracic deformity. No chest wall tenderness. Percussion, resonant. Auscultation, clear. No wheezes, no rales, no rhonchi. ABDOMEN: Soft, nondistended, nontender. No abdominal pain, no vomiting and normal appetite. MUSCULOSKELETAL: No joint tenderness, normal gait, normal tone. SKIN: Warm and dry. OVERALL IMPRESSION: Non-Q-wave myocardial infarction. We will proceed with coronary angiography. Further care depends upon the findings of the angiography. TRANSINT:[id number] Voice Confirmation ID: [id number] DOCUMENT ID: [id number] CONSULT REPORT [id number] DEAN HERNANDEZ JEFFREY MD CC: [id number] DICTATION DATE: 09/04/19 1029 REGIONAL VICE PRESIDENT LIFE SALES: 09/04/19 1149 ADM IN [place] [address] [place] [address]
[2019-09-03] MEDS ORDERED: GLUCOPHAGE500 MG PO (20:32)
[2019-09-03 21:03] LABS: BASOPHILS 0.1 % (0-2); EOSINOPHILS 0.4 % (0-7); HEMATOCRIT 44.8 % (42.0-54.0); HEMOGLOBIN 15.1 g/dL (13.5-17.5); IMMATURE GRANULOCYTES 0.6 % (0-5); LYMPHOCYTES 8.1 % (15-50); MCH 28.3 pg (26.0-34.0); MCHC 33.7 g/dL (31.0-37.0); MCV 83.9 fL (80.0-100.0); MEAN PLATELET VOLUME 11.3 fL (7.4-10.4); MONOCYTES 4.4 % (2-11); NEUTROPHILS 86.4 % (40-80); PLATELET COUNT 186 10x3/uL (130-400); RBC 5.34 10x6/uL (4.20-6.10); RDW 13.4 % (11.5-14.5)
--- NOTE | 2019-09-03 21:09 | NUR ---
PT REPORTS SIMILAR INCIDENT LAST WEEK WITH N/V, DIZZINESS, AND CP. PT REPORTS HE WAS SEEN AT ANOTHER FACILITY AND DX WITH FOOD POISONING.
[2019-09-03 21:10] VITALS: BP 141/99
[2019-09-03 21:10] LABS: APTT 31.9 SECONDS (22.8-39.4); CALC OSMOLALITY 287 mosm/kg (275-300); CALCIUM 8.3 mg/dL (8.5-10.1); CARBON DIOXIDE 24.2 mmol/L (21.0-32.0); CHLORIDE - SERUM 102 mmol/L (98-107); CREATININE - SERUM 1.2 mg/dL (0.6-1.3); GLUCOSE 331 mg/dL (74-106); INR 1.24 (0.85-1.17); SODIUM 137 mmol/L (136-145); UREA NITROGEN 14 mg/dL (7-18); eGFR NON AFRICAN AMERICAN 70 mL/min (90-120)
[2019-09-03 21:32] LABS: ALBUMIN 3.3 g/dL (3.4-5.0); ALKALINE PHOSPHATASE 92 U/L (46-116); ALT (SGPT) 42 U/L (10-68); BILIRUBIN - TOTAL 0.65 mg/dL (0.2-1.3); CKMB 8.8 U/L (0.0-3.6); CREATINE KINASE 161 UL (21-232); MAGNESIUM - SERUM 1.6 mg/dL (1.8-2.4); PROTEIN - SERUM 7.4 g/dL (6.4-8.2)
[2019-09-03 21:33] LABS: TROPONIN-I 0.296 ng/mL (0.000-0.060)
[2019-09-03 22:42] LABS: CKMB 14.4 U/L (0.0-3.6); CREATINE KINASE 201 UL (21-232)
[2019-09-03 23:10] VITALS: BP 145/97; BMI 36.3
--- NOTE | 2019-09-03 23:16 | NUR ---
RECIEVED REPORT FROM YONG AGOSTO IN ER. ARRIVED TO FLOOR IN W/C. ALERT AND ORIENTED X4. UP AD MIGUEL ANGEL TO B/R. ORIENTED TO ROOM, MEAL TIMES AND SHIFT CHANGES. REPORTS HX OF HTN,HYPOTHYROIDISM AND TYPE 2 DM. ALSO, STATES HE HAS'NT TAKEN MEDICATION FOR DIABETIC IN A LONG TIME . UNTIL RECENTLY STARTED BACK TAKING METFORMIN. HAS'NT TAKEN B/P MEDICATION OR THYROID MEDICINE IN YEARS. B/P ELEVATED. EDUCATED ON RISK AND BENIFITS OF TAKING MEDICATIONS AND TAKING CARE OF HIS SELF. VERBAL AGREEMENT GIVEN. ALSO, STATES HE DOES'NT HAVE A DOCTOR.
[2019-09-04 05:31] LABS: CKMB 31.2 U/L (0.0-3.6)
[2019-09-04 05:32] LABS: CREATINE KINASE 257 UL (21-232); TROPONIN-I 6.631 ng/mL (0.000-0.060)
[2019-09-04 06:07] LABS: BASOPHILS 0.1 % (0-2); EOSINOPHILS 2.3 % (0-7); HEMATOCRIT 41.8 % (42.0-54.0); IMMATURE GRANULOCYTES 0.5 % (0-5); LYMPHOCYTES 17.9 % (15-50); MCH 28.2 pg (26.0-34.0); MCHC 33.5 g/dL (31.0-37.0); MCV 84.1 fL (80.0-100.0); MEAN PLATELET VOLUME 11.7 fL (7.4-10.4); NEUTROPHILS 73.2 % (40-80); PLATELET COUNT 204 10x3/uL (130-400); RBC 4.97 10x6/uL (4.20-6.10); RDW 13.5 % (11.5-14.5); WBC 13.2 10x3/uL (4.8-10.8)
[2019-09-04 06:16] LABS: ALT (SGPT) 43 U/L (10-68); CALCIUM 8.5 mg/dL (8.5-10.1); CARBON DIOXIDE 27.1 mmol/L (21.0-32.0); CHLORIDE - SERUM 105 mmol/L (98-107); CHOL - HDL RATIO 6.6 ratio (2.3-4.9); CHOLESTEROL, TOTAL 165 mg/dL (0-200); HDL CHOLESTEROL 25 mg/dL (32-96); LDL CHOLESTEROL 115 mg/dL (0-100); LDL-HDL RATIO 4.6 ratio (1.5-3.5); POTASSIUM - SERUM 3.9 mmol/L (3.5-5.1); SODIUM 138 mmol/L (136-145); TRIGLYCERIDE 126 mg/dL (30-200); UREA NITROGEN 15 mg/dL (7-18); eGFR NON AFRICAN AMERICAN 86 mL/min (90-120)
[2019-09-04 06:17] LABS: CALC OSMOLALITY 281 mosm/kg (275-300); GLUCOSE 180 mg/dL (74-106)
--- NOTE | 2019-09-04 07:15 | NUR ---
RECEIVED PT IN BED EYES CLOSED RESP UNLABORED SKIN W/D COLOR WNL NAD NOTED
[2019-09-04 08:29] VITALS: BP 168/96
[2019-09-04 09:51] LABS: CKMB 25.7 U/L (0.0-3.6); CREATINE KINASE 209 UL (21-232)
[2019-09-04 09:54] LABS: TROPONIN-I 4.728 ng/mL (0.000-0.060)
[2019-09-04 10:28] VITALS: Ht 188 cm; Wt 128.2 kg
[2019-09-04 12:07] VITALS: BP 160/96
--- NOTE | 2019-09-04 17:10 | NUR ---
REFUSES TO WEAR SCDS
[2019-09-04 20:00] VITALS: BP 137/84
--- NOTE | 2019-09-04 20:09 | NUR ---
RECIEVED UP IN BED WITH HOB ELEVATED. ALERT AND ORIENTED X4. HAS A FLAT AFFECT. IV TO LEFT AC SL.. DSG TO RIGHT GROIN CDI. TELEMETRY IN PLACE. CONT TO MONITOR BLOOD SUGARS. DENIES ANY PAIN OR NEEDS AT THIS TIME.
[2019-09-05] VITALS: BP 145/91
[2019-09-05 04:00] VITALS: BP 161/98
[2019-09-05 05:12] LABS: BASOPHILS 0.1 % (0-2); EOSINOPHILS 2.7 % (0-7); HEMATOCRIT 41.6 % (42.0-54.0); HEMOGLOBIN 13.8 g/dL (13.5-17.5); IMMATURE GRANULOCYTES 0.5 % (0-5); MCH 28.3 pg (26.0-34.0); MCHC 33.2 g/dL (31.0-37.0); MCV 85.2 fL (80.0-100.0); MEAN PLATELET VOLUME 10.8 fL (7.4-10.4); MONOCYTES 6.7 % (2-11); PLATELET COUNT 198 10x3/uL (130-400); RBC 4.88 10x6/uL (4.20-6.10); RDW 13.6 % (11.5-14.5); WBC 10.2 10x3/uL (4.8-10.8)
[2019-09-05 05:25] LABS: ALKALINE PHOSPHATASE 67 U/L (46-116); ALT (SGPT) 42 U/L (10-68); BILIRUBIN - TOTAL 0.65 mg/dL (0.2-1.3); CALC OSMOLALITY 276 mosm/kg (275-300); CALCIUM 8.5 mg/dL (8.5-10.1); CARBON DIOXIDE 26.9 mmol/L (21.0-32.0); CHLORIDE - SERUM 105 mmol/L (98-107); POTASSIUM - SERUM 3.9 mmol/L (3.5-5.1); PROTEIN - SERUM 7.1 g/dL (6.4-8.2); SODIUM 137 mmol/L (136-145); UREA NITROGEN 14 mg/dL (7-18); eGFR NON AFRICAN AMERICAN 86 mL/min (90-120)
[2019-09-05 05:27] LABS: GLUCOSE 131 mg/dL (74-106)
[2019-09-05 08:17] VITALS: BP 178/104
[2019-09-05 11:43] VITALS: BP 160/87
[2019-09-05] MEDS ORDERED: PRAVACHOL20 MG PO (13:46)
[2019-09-05] MEDS ORDERED: PLAVIX75 MG PO (13:46)
[2019-09-05] MEDS ORDERED: ASPIRIN81 MG PO (13:47)
[2019-09-05] MEDS ORDERED: METOPROLOL TART50 MG PO (13:47)
[2019-09-05 15:04] VITALS: BP 151/93
--- NOTE | 2019-09-05 15:26 | NUR ---
PRE-OPS GIVEN. TO ROAD CONDUCTOR BY BED.
--- NOTE | 2019-09-05 16:55 | MORECARE ---
CASE MANAGEMENT DISCHARGE SUMMARY PATIENT: DEAN HERNANDEZ UNIT: [id number] ADM DATE: 09/03/19 AGE: 43 : 73 SEX: M ROOM/BED: D.2116 AUTHOR: SHANE,DOC PHYSICIAN: REFERRING PHYSICIAN: ADEOLA MCCARTNEY MD DATE OF SERVICE: 09/05/19 Discharge Plan Patient Name: DEAN HERNANDEZ Facility: [facility]:[place] : 1975 Planned Disposition: Home Anticipated Discharge Date: 09/05/19 Discharge Date: Expected LOS: 2 Initial Reviewer: [email or web address] Initial Review Date: 09/05/2019 Generated: 09/05/19 5:55 pm Comments DCP- Discharge Planning Updated by [email or web address]: Ray Jameson on 09/05/19 3:[address] Patient Name: DEAN HERNANDEZ Admission Status: ER Accout number: [id number] Admission Date: 09-03-2019 : 1975 Admission Diagnosis: Attending: HERMELINDO Current LOS: 2 Anticipated DC Date: 09-05-2019 Planned Disposition: Home Primary Insurance: UNINSURED DISCOUNT PLAN Discharge Planning Comments: CM MET WITH PT IN ROOM TO DISCUSS DISCHARGE PLANNING AND NEEDS. PT REPORTS LIVING AT HOME INDEPENDENTLY AND ALONE. PT HAS NO MEDICAL EQUIPMENT AND NO OUTSIDE SERVICES ASSISTING IN THE HOME. CM DISCUSSED AVAILABILITY OF HOME HEALTH, REHAB SERVICES AND MEDICAL EQUIPMENT. PT DENIES DISCHARGE NEEDS AT THIS TIME, REPORTS HAVING TO CALL SOMEONE FOR DISCHARGE TRANSPORTATION HOME. PT IS EMPLOYED AT [employer], WAS TOLD BY [facility] MED DATA SECTION PERSON THAT HE MAKES TOO MUCH MONEY TO QUALIFY FOR MEDICAID. CM PROVIDED PT WITH GOOD RX DISCOUNT CARD TO USE IF NEEDED. Alteration Worker: Ray Jameson DCPIA - Discharge Planning Initial Assessment Updated by [email or web address]: Ray Jameson on 09/05/19 4:48 pm * Is the patient Alert and Oriented? Yes * How many steps to enter\exit or inside your home? 30 * PCP NONE * Pharmacy [facility] [address] * Preadmission Environment Home Alone * ADLs Independent * Equipment None * Other Equipment NO MEDICAL EQUIPMENT PROVIDER PREFERENCE * List name and contact numbers for known caregivers / representatives who currently or will assist patient after discharge: MARIBEL HERNANDEZ, FATHER, * Verbal permission to speak to the caregivers and representatives has been obtained from the patient. Yes * Community resources currently utilized None * Please name any agencies selected above. NONE * Additional services required to return to the preadmission environment? No * Can the patient safely return to the preadmission environment? Yes * Has this patient been hospitalized within the prior 30 days at any hospital? No Patient Name: DEAN HERNANDEZ Page [phone] at 1655 All edits/amendments must be made on the electronic document DICTATION DATE: 09/05/191653 BATH MIXER: DAMIAN 09/05/191653 RPT#: [id number] DC DATE: STATUS: ADM IN [facility] [address] [place] [address] END OF REPORT
--- NOTE | 2019-09-05 19:31 | NUR ---
RECEIVED BEDSIDE REPORT. PATIENT IS ALERT AND ORIENTED, RESTING COMFORTABLY IN BED. RESPIRATIONS ARE EVEN AND UNLABORED. NO S/S OF DISTRESS. NO C/O PAIN. PATIENT ASKING IF HE CAN STILL GO HOME TONIGHT. REVIEWED DISCHARGE ORDERS, PATIENT MAY LEAVE TONIGHT. PATIENT IS TRYING TO MAKE ARRANGEMENTS FOR TRANSPORTATION. CALL LIGHT WITHIN REACH. WILL CPOC.
--- NOTE | 2019-09-05 20:00 | NUR ---
LEFT GROIN ASSESSED. NO SIGHS OF BLEEDING, SWELLING OR BRUISING.
--- NOTE | 2019-09-05 20:30 | NUR ---
LEFT GROIN ASSESSED NO SIGNS OF BLEEDING, SWEELING OR BRUISING. PATIENT WANTING TO KNOW IF HE WAS STILL ABLE TO GO HOME TONIGHT. THERE IS A DISCHARGE OR FROM STATING HE MY GO HOME TONIGHT OR IN AM. PATIENT WANTS TO GO HOME TONIGHT.
--- NOTE | 2019-09-05 21:06 | NUR ---
PATIENT IV DISCONTINUED. LEFT GROIN ASSESSED. NO SIGNS OF BLEEDING, SWELLING, OR BRUISING. RN WENT OVER DISCHARGE INSTRUCTIONS. PATIENT GIVEN THE PRESCRIPTIONS FROM CHART. PATIENT TRANSPORTED OFF FLOOR BY TOBACCO GRADER.
== END 2019-09-05 21:09 | disposition home or self-care (01) | DRG 246 ==
LOC: D.ER 20:28 → D.M2 21:41
PROVIDERS: Emergency Medicine; Internal Medicine Interventional Cardiology; Internal Medicine Nephrology; ADMIT Family Medicine; ATTEND Family Medicine
PROC: 4A023N7 Measurement of Cardiac Sampling and Pressure, Left Heart, Percutaneous Approach (ICD-10-PCS; 2019-09-04)
PROC: B2111ZZ Fluoroscopy of Multiple Coronary Arteries using Low Osmolar Contrast (ICD-10-PCS; 2019-09-04)
PROC: B2151ZZ Fluoroscopy of Left Heart using Low Osmolar Contrast (ICD-10-PCS; 2019-09-04)
PROC: 027136Z Dilation of Coronary Artery, Two Arteries with Three Drug-eluting Intraluminal Devices, Percutaneous Approach (ICD-10-PCS; principal; 2019-09-04 12:00)
PROC: 027034Z Dilation of Coronary Artery, One Artery with Drug-eluting Intraluminal Device, Percutaneous Approach (ICD-10-PCS; 2019-09-05)
DX: I21.4 Non-ST elevation (NSTEMI) myocardial infarction (principal); D64.9 Anemia, unspecified; I10 Essential (primary) hypertension; E03.9 Hypothyroidism, unspecified; E11.40 Type 2 diabetes mellitus with diabetic neuropathy, unspecified; I25.119 Atherosclerotic heart disease of native coronary artery with unspecified angina pectoris

== ENCOUNTER 2019-09-25 01:33 | Inpatient (IN) | payer SELFPAY ==
[~2019-09-25] VITALS: Ht 188 cm; Wt 126.6 kg
[2019-09-25] VITALS (8 sets, daily range): BP systolic 111–163; BP diastolic 8–94; BMI 35.9
--- NOTE | ~2019-09-25 | HEMODYNAMI ---
PATIENT:DEAN HERNANDEZ MEDICAL RECORD: [id number] : 73 LOCATION:[address] ADMISSION DATE: 09/25/19 Generatedon:09/26/201912:32 Patient name: DEAN HERNANDEZ Patient #: [id number] SSN: [id number] : 1975 Date of study: 09/26/2019 Page: Of Hemodynamic Procedure Report Patient Data Patient Demographics Procedure consent was obtained First Name: DEAN Gender: Male Last Name: MARY : 1975 Patient #: [id number] Age: 43 year(s) Race: SSN: [id number] Additional ID: [id number] Contact details Address: [address] [place] [address] State: [place] City: [facility] [place] Zip code: [address] Past Medical History Allergies: No known allergies Admission Admission Data Admission Date: 09/25/2019 Admission Time: 13:20 Room #: D2117 Lab Results Lab Result Date: 09/26/2019 Lab Result Time: 0:00 Biochemistry Name Units Result Min Max BUN mg/dl 14 --(--*-)-- 7 18 Creatinine mg/dl 0.9 --(-*--)-- 0.6 1.3 eGFR ml/min 90 --(*---)-- 90 120 NONAFRICAN CBC Name Units Result Min Max Hematocrit % 39.4 -*(----)-- 42 54 Hemoglobin g/dl 12.9 -*(----)-- 13.5 17.5 Procedure Procedure Types Cath Procedure Diagnostic Procedure [facility] w/Coronaries Sedation Charges Moderate Sedation up to 15 minutes PCI Procedure Coronary Stent Coronary Stent Initial Hemochron ACT Test Procedure Description Procedure Date Procedure Date: 09/26/2019 Procedure Start Time: 11:55 Procedure End Time: 12:29 Procedure Staff Name Function Emeterio Garnica MD Performing Physician Cindy Dutton RT Monitor Jane Pérez RT Scrub Homero Lorigan RN Nurse Procedure Data Cath Procedure Fluoroscopy Diagnostic fluoroscopy Total fluoroscopy Time: 11 time: 11 min min Diagnostic fluoroscopy Total fluoroscopy dose: dose: 1480 mGy 1480 mGy Contrast Material Contrast Material Type Amount (ml) Isovue 300 240 Entry Location Entry Primary Successful Side Size Upsize Upsize Entry Closure Succes sful Closure Location (Fr) 1 (Fr) 2 (Fr) Remarks Device Remarks Femoral Right 6 Fr Exoseal artery Short Estimated blood loss: 10 ml Diagnostic catheters Device Type Used For End Catheter Placement MULTIPACK Pigtail 5 Fr Procedure catheter MULTIPACK 3DRC 5Fr Procedure catheter Procedure Complications No complications Procedure Medications Medication Administration Route Dosage 0.9% NaCl I.V. 100 ml/hr Oxygen etCO2 Nasal cannula 2 l/min Heparin Flush Bag added to field 2 bags (1000units/500ml NS) Lidocaine 2% added to field 20 Versed I.V. 2 mg Fentanyl I.V. 100 mcg Heparin Bolus I.V. 4000 units Fentanyl I.V. 50 mcg Hemodynamics Rest HGB: 12.9 (g/dl) Heart Rate: 70 (bpm) Snapshots Pre Cath Intra NCS Post Cath Vital Signs Time Heart Resp SPO2 etCO2 NIBP (mmHg) Rhythm Pain Sedation Rate (ipm) (%) (mmHg) Status Level (bpm) 11:12:08 71 11 93 36.1 138/84(111) NSR 0 (11) 10(A) , No pain 11:16:24 66 15 91 28.5 119/78(103) NSR 0 (11) 10(A) , No pain 11:20:34 68 15 92 34.5 136/80(96) NSR 0 (11) 10(A) , No pain 11:24:48 69 11 92 38.3 124/85(101) NSR 0 (11) 10(A) , No pain 11:29:02 69 10 93 35.3 143/77(107) NSR 0 (11) 10(A) , No pain 11:33:16 68 16 92 36.8 130/76(102) NSR 0 (11) 10(A) , No pain 11:37:32 68 13 94 34.6 130/73(100) NSR 0 (11) 10(A) , No pain 11:41:46 69 11 94 31.5 122/81(101) NSR 0 (11) 10(A) , No pain 11:46:00 67 13 92 31.5 127/77(105) NSR 0 (11) 10(A) , No pain 11:50:16 68 11 93 34.5 126/76(104) NSR 0 (11) 10(A) , No pain 11:54:26 70 12 92 34.5 119/77(97) NSR 0 (11) 9(A) , No pain 11:58:34 69 17 93 35.3 132/87(111) NSR 0 (11) 9(A) , No pain 12:02:50 70 14 93 36 144/82(103) NSR 0 (11) 9(A) , No pain 12:07:04 70 11 90 36 136/83(102) NSR 0 (11) 9(A) , No pain 12:11:18 70 11 94 36.8 121/74(97) NSR 0 (11) 9(A) , No pain 12:15:30 71 12 93 36.8 131/79(101) NSR 0 (11) 9(A) , No pain 12:19:44 72 12 94 40.5 126/81(108) NSR 0 (11) 9(A) , No pain 12:23:54 72 14 96 35.3 142/99(109) NSR 0 (11) 10(A) , No pain 12:28:12 72 7 95 27.7 147/91(108) NSR 0 (11) 9(A) , No pain Medications Time Medication Route Dose Verified Delivered Reason Notes Effectiveness by by 11:18:13 0.9% NaCl I.V. 100 Homero Homero Per physician ml/hr Aaliyah Fischer RN RN 11:18:23 Oxygen etCO2 2 Homero Homero for low 02 sats Nasal l/min Aaliyah Fischer cannula RN RN 11:18:56 Heparin Flush added 2 Homero Homero used for Bag to bags Aaliyah Fischer procedure (1000units/500ml field AGOSTO RN NS) 11:19:08 Lidocaine 2% added 20ml Homero Homero for local to vial Aaliyah Fischer anesthetic field AGOSTO RN 11:55:20 Versed I.V. 2 mg Homero Homero for sedation Aaliyah Fischer RN RN 11:55:30 Fentanyl I.V. 100 Homero Homero for sedation vinny Fischer RN RN 12:16:06 Heparin Bolus I.V. 4000 Homero Homero for units Aaliyah Fischer anticoagulation RN RN 12:26:46 Fentanyl I.V. 50 Homero Homero for sedation vinny Fischer RN burrer operator Log Time Note 10:45:10 Emeterio Garnica MD sent for patient. Start room use. 10:46:03 Informed consent obtained and on chart 10:53:06 Procedure Status Urgent Heart Cath (IP). 10:53:17 Time tracking: Regular hours (M-F 7:00 - 5:00) 10:53:22 Plan of Care:Hemodynamics will remain stable., Cardiac rhythm will remain stable., Comfort level will be maintained., Respiratory function will remain adequate., Patient/ family verbilizes understanding of procedure., Procedure tolerated without complication., Recovers from procedure without complications.. 10:53:28 H&P Date Dictated: 09/26/2019 New H&P dictated by physician.. 10:59:12 Patient allergic to No known allergies 11:00:03 Patient received from Med II to CCL 1 Alert and oriented. Tansferred to table in Supine position. 11:00:04 Warm blankets applied, and cora hugger turned on for patient comfort. 11:00:04 Correct patient and procedure confirmed by team. 11:00:04 ECG and BP/O2 sat monitors applied to patient. 11:11:07 Vital chart was started 11:11:08 Baseline sample Acquired. 11:11:10 Rhythm: sinus rhythm 11:11:12 Full Disclosure recording started 11:11:12 Pre-procedure instructions explained to patient. 11:11:12 Pre-op teaching completed and patient verbalized understanding. 11:11:14 Family in patients room. 11:11:15 Patient NPO since Midnight. 11:11:18 Is the patient allergic to Iodine/contrast media? No. 11:11:18 Is patient on blood thinner?Yes 11:11:21 ACC The patient was administered the following blood thiners within the last 24 hours: ACCPlavix 11:11:23 Patient diabetic? Yes. 11:11:23 If diabetic: On Metformin? Yes 11:11:25 If on Metformin: Last Dose? 09/26/2019 11:11:41 Previous problem with sedation/anesthesia? No ? 11:11:42 Snore? Yes 11:11:43 Sleep apnea? Yes 11:11:44 Deviated septum? No 11:11:44 Opens mouth fully? Yes 11:11:45 Sticks out tongue? Yes 11:11:47 Airway obstruction? No ? 11:11:50 Dentures? No ? 11:11:57 Pre procedure: right dorsailis pedis pulse 1+ Palpable, but thready & weak; easily obliterated 11:11:59 Patient pain scale 0/10 ?. 11:12:12 IV patent on arrival in right antecubital with 0.9% NaCl at [facility]. 11:12:41 Lab Result : Creatinine 0.9 mg/dl 11:12:41 Lab Result : BUN 14 mg/dl 11:12:41 Lab Result : eGFR NONAFRICAN 90 ml/min 11:12:41 Lab Result : Hemoglobin 12.9 g/dl 11:12:41 Lab Result : Hematocrit 39.4 % 11:12:45 Lab results completed and on chart. 11:12:52 Stress Test: no; N/A NSTEMI 11:17:22 Risk of Mortality: .8 11:17:25 Risk of blood transfusion: .3 11:17:27 Risk of KATHERINE: 1 11:17:29 Right groin area was prepped with chlora-prep and draped in sterile fashion 11:17:30 Alarms reviewed by R. N. 11:17:31 Sharps counted by scrub and verified by R.N. 11:17:40 Use device set CATH PACK 11:17:40 ACIST Syringe (71000) opened to sterile field. 11:17:41 ACIST Hand Control (66504) opened to sterile field. 11:17:41 ACIST Manifold (16735) opened to sterile field. 11:17:42 Medline Cath Pack ([id number]) opened to sterile field. 11:17:42 Bag Decanter (2002S) opened to sterile field. 11:17:42 EMERALD Guide Wire (106-500) opened to sterile field. 11:17:50 SHEATH 6FR [place] (XMP533) opened to sterile field. 11:17:50 INFLATOR Merit BasixCompak (KB4522) opened to sterile field. 11:18:13 0.9% NaCl 100 ml/hr I.V. was administered by Homero Fischer RN; Per physician; Verbal order read back and verified. 11:18:23 Oxygen 2 l/min etCO2 Nasal cannula was administered by Homero Fischer RN; for low 02 sats; Verbal order read back and verified. 11:18:56 Heparin Flush Bag (1000units/500ml NS) 2 bags added to field was administered by Homero Fischer RN; used for procedure; Verbal order read back and verified. 11:19:08 Lidocaine 2% 20ml vial added to field was administered by Homero Fischer RN; for local anesthetic; Verbal order read back and verified. 11:52:44 Zero performed for pressure channel P1 11:53:53 --------ALL STOP TIME OUT------ 11:53:53 Final Timeout: patient, procedure, and site verified with staff and physician. All members of the team are in agreement. 11:53:55 Right groin site verified by team. 11:53:58 Fire Safety Assessment: A--An alcohol-based skin anteseptic being used preoperatively., C--Open oxygen or nitrous oxide is being used., D--An ESU, laser, or fiber-optic light is being used. 11:54:01 Physical assessment completed. ASA score P 2 - A patient with mild systemic disease as per Emeterio Garnica MD. 11:54:03 1) 90+ Normal kidney functon but urine findings or structural abnormalities or genetic trait point to kidney disease. 11:54:07 Maximum allowable contrast dose (3.7 X eGFR X 0.75)250 ml. 11:54:11 Sedation plan: IV Moderate Sedation Medication:Versed, Fentanyl 11:55:01 Procedure started. 11:55:06 Local anesthetic to right femoral artery with Lidocaine 2% by Emeterio Garnica MD.INITIAL ACCESS ONLY 11:55:20 Versed 2 mg I.V. was administered by Homero Fischer RN; for sedation; Verbal order read back and verified. 11:55:22 Use device set Multipack Set 11:55:24 DIAGNOSTIC Multipack 5Fr catheter set ([id number]) opened to sterile field. 11:55:30 Fentanyl 100 mcg I.V. was administered by Homero Lorigan RN; for sedation; Verbal order read back and verified. 11:58:03 A 6 Fr Short sheath was inserted into the Right Femoral artery 11:58:57 A MULTIPACK Pigtail 5 Fr catheter was advanced over the wire and used for Procedure. 11:58:59 LV gram done using SIMONS 11:59:01 Injector settings: Ml/sec: 10, Volume: 20, 11:59:39 EF : 50 % 11:59:41 Catheter exchanged over wire. 12:00:21 A MULTIPACK 3DRC 5Fr catheter was advanced over the wire and used for Procedure. 12:02:27 Catheter exchanged over wire. 12:02:40 UNABLE TO ENGAGE RCA 12:02:46 GUIDE 6FR XBLAD 4.0 catheter ([id number]) opened to sterile field. 12:03:07 6 Fr XBLAD 4 guide catheter was inserted over the wire 12:04:00 RCA angiography performed. 12:04:06 Newport Verrata Plus pressure wire (59997O) opened to sterile field. 12:08:51 CHOICE PT Extra Support 182cm wire ([id number]) opened to sterile field. 12:11:27 LCA angiography performed. 12:13:30 Guide catheter removed. 12:13:41 GUIDE 6FR EBU 4.5 catheter ([id number]) opened to sterile field. 12:13:55 6 Fr EBU 4.5 guide catheter was inserted over the wire 12:14:30 CHOICE ES 182 wire advanced. 12:16:03 Wire advanced across lesion. 12:16:06 Heparin Bolus 4000 units I.V. was administered by Homero Fischer RN; for anticoagulation; Verbal order read back and verified. 12:16:33 Pre PCI Site: [place] pCirc has 95% stenosis. 12:16:52 Place stent Inflation Number: 1 A COBRA RX 3.0 X 08 Stent was prepped and advanced across the Prox CX . The stent was deployed at 15 BRANDEN for 0:00 (min:sec) . 12:17:59 Stent catheter was removed intact over wire. 12:18:01 Wire removed. 12:18:13 Guide catheter removed. 12:18:27 GUIDE 6FR EBU 3.5 catheter ([id number]) opened to sterile field. 12:18:43 6 Fr EBU 3.5 guide catheter was inserted over the wire 12:22:08 FFR/IFR wire advanced. 12:22:13 UNABLE TO ADVANCE RCA WITH IFR 12::17 Guide catheter removed. 12::41 EXOSEAL 6Fr (EX600) opened to sterile field. 12::51 Sheath removed intact; hemostasis achieved with Exoseal to the Right Femoral artery. 12::53 Procedure ended.(Physican Out) 12:25:37 Femstop placed over the right femoral artery at 136 mmHg. Hemostasis achieved. 12:: Fluoroscopy time 11.00 minutes. 12:: Flurop Dose total: 1480 12:: Fluoroscopy dose: 1480 mGy 12:: Dose Area Product 26665 mGy/cm. 12:: Contrast amount:Isovue 300 240ml. 12:: Maximum allowable dose exceeded? No. 12:: Sharps counted by scrub and verified by R.N. 12::30 Post-procedure physical assessment completed. ASA score P 2 - A patient with mild systemic disease as per Emeterio Garnica MD. 12::33 Post procedure rhythm: sinus rhythm 12::35 Estimated blood loss: 10 ml 12::40 ACT drawn and resulted at 234 seconds. (normal therapeutic range 180-240 seconds). 12::44 Post procedure instruction explained to patient.Patient verbalizes understanding. 12::44 Patient needs reinforcement of post procedure teaching. 12::46 Fentanyl 50 mcg I.V. was administered by Homero Fischer RN; for sedation; Verbal order read back and verified. 12::27 Procedure type changed to Cath procedure, Diagnostic procedure, C, [facility] w/Coronaries, Sedation Charges, Moderate Sedation up to 15 minutes, PCI procedure, Coronary Stent, Coronary Stent Initial, Hemochron ACT Test 12::30 Procedure and supply charges have been captured, reviewed, submitted and are correct. 12::32 Procedure Complication : No complications 12::33 Vital chart was stopped 12::35 [facility] Findings: MVD- PCI performed (see procedure note) 12::42 Operative report dictated upon procedure completion. 12::42 See physician's report for complete and final results. 12::45 Report given to PCU. 12::47 Patient transfered to PCU with Bed. 12:29:51 Procedure ended. 12:29:51 Full Disclosure recording stopped 12:29:57 ACC-PCI Only Patient was given prescriptions, or instructed by Emeterio Garnica MD to start/continue the following medications upon discharge: Plavix 12:29:58 End room use (Document Last) 12:31:48 End room use (Document Last) 12:32:08 End room use (Document Last) Intervention Summary Intervention Notes Time ActionType Lesion and Equipment Action# Pressure Duration Attributes Used 12:16:52 Place stent Prox CX COBRA RX 1 15 00:00 3.0 X 08 Stent Device Usage Item Name Manufacture Quantity Catalog Number Hospital Part Current Minimal Lot# / Charge Number Stock Stock Serial# Code ACIST Syringe Acist 1 26016 572247 969172 196436 20 (19153) Medical Systems Inc ACIST Hand Acist 1 11033 422784 545216 883451 5 Control Medical (69945) Systems Inc ACIST Manifold Acist 1 04481 919915 328418 484574 5 (00598) Medical Systems Inc Medline Cath Medline 1 [id number] 951025 81624 331384 5 Pack ([id number]) Bag Decanter Microtek 1 2001S 402293 80846 515692 5 (2001S) Medical Inc. EMERALD Guide Cardinal 1 502-455 156179 561150 504218 5 Wire (502-455) Health SHEATH 6FR Terumo 1 VWF398 494331 214351 886806 40 [place] (YAI803) INFLATOR Merit Merit 1 OW4308 338838 208064 630845 15 [facility] (UO0508) DIAGNOSTIC Cardinal 1 XN3045 775892 81945 989709 30 Multipack 5Fr Health catheter set (OU9760) MULTIPACK Cardinal 1 703934 5 Pigtail 5 Fr Health catheter MULTIPACK 3DRC Cardinal 1 832064 5 5Fr catheter Health GUIDE 6FR Cardinal 1 [id number] 207604 924438 954294 3 XBLAD 4.0 Health catheter (11045247) Newport Newport 1 10366A 416419 678961938 887629 5 Verrata Plus pressure wire (63426S) CHOICE PT [place] 1 [id number] 497287 452885 914055 5 Extra Support Scientific 182cm wire (4031177I2) GUIDE 6FR EBU Medtronic 1 [id number] 173462 77019 534313 0 4.5 catheter (IC6IBV84) COBRA RX 3.0 X Celonova 1 633182 [id number] 5837610 8 [id number] 08 stent Biosciences () GUIDE 6FR EBU Medtronic 1 [id number] 610058 78015 132251 3 3.5 catheter ([id number]) EXOSEAL 6Fr Cardinal 1 EX600 919917 296039 274690 10 (EX600) Health Signature Audit [place] Stage Time Signature Unsigned Intra-Procedure 09/26/2019 Cindy Dutton 12:31:48 PM RT(R) Intra-Procedure 09/26/2019 Homero 12:32:08 PM Aaliyah AGOSTO Intra-Procedure 09/26/2019 Emeterio Garnica 12:32:24 PM [id number] [place] [address]
--- NOTE | ~2019-09-25 | OP ---
PATIENT NAME: DEAN HERNANDEZ MEDICAL RECORD: [id number] :73 LOCATION:D.M2 D.7 ADMISSION DATE:09/25/19 SURGEON: IDNH GRAJEDA MD DATE OF OPERATION: 09/26/2019 PROCEDURES: 1. PTCA and stent to the left circumflex. 2. Left heart catheterization. 3. Selective coronary angiography. 4. Left ventriculogram. INDICATIONS: Non-Q-wave myocardial infarction. DESCRIPTION OF PROCEDURE: After informed consent was obtained and after a detailed description of the risks, benefits as well as alternative therapies, the patient elected to proceed with angiogram and angioplasty. The right femoral area was prepped and draped in normal sterile fashion. Right femoral artery was cannulated via modified Seldinger technique with placement of 6-Lao sheath. All catheters exchanged through this sheath. FINDINGS: Left ventriculogram was performed in standard 30-degree SIMONS view, reveals preserved cardiac wall motion, ejection fraction 50%. SELECTIVE CORONARY ANGIOGRAPHY: 1. Left main is with no significant angiographic disease. 2. Left anterior descending has previously placed stents that are widely patent with no significant restenosis and thrombosis. 3. Left circumflex has previously placed stents, these are widely patent; however, the circumflex itself just after the first obtuse marginal has a hazy 90% stenosis. 4. The right coronary has a very difficult takeoff. This appears to be widely patent. PTCA STENT OF THE CIRCUMFLEX: The stent used was a 3.0 x 8 mm Cobra. Result was 0% residual stenosis. OVERALL IMPRESSION: Successful percutaneous transluminal coronary angioplasty and stent of the left circumflex going from 90% initial stenosis to 0% residual. TRANSINT:[id number] Voice Confirmation ID: [id number] DOCUMENT ID: [id number] DINH GRAJEDA MD CC: [id number] DICTATION DATE: 09/26/19 1226 DATA OPERATIONS LEADER: 09/26/191923 DIS IN 09/26/[address] [facility] [address] [place] [address]
--- NOTE | ~2019-09-25 | EC ---
PATIENT:DEAN HERNANDEZ DATE OF SERVICE: 09/25/19 SEX: M MEDICAL RECORD: [id number] DATE OF : 73 LOCATION:D.M2 D.211 AGE OF PATIENT: 43 ADMISSION DATE: 09/25/19 REFERRING PHYSICIAN: INTERPRETING PHYSICIAN: DINH GARNICA MD ECHOCARDIOGRAM REPORT ECHO CHARGES 4 ECHO COMPLETE Date: 09/25/19 CLINICAL DIAGNOSIS: CT ECHOCARDIOGRAPHIC MEASUREMENTS (adult normal given) AC root (d.<3.7cm) 2.8 cm LV Septum d (<1.2 cm> 1.0 cm Valve Excursion 1.5 cm LV Septum (systole) 1.4 cm Left Atria (s.<4.0cm> 2.8 cm LVPW d(<1.2cm) 1.1 cm RV (d.<2.3cm) 2.5 cm LVPW (sytole) 1.2 cm LV diastole(<5.6CM) 4.9 cm MV E-F(>70mm/sec) cm LV systole 3.9 cm LVOT Diameter 2.0 cm MV exc.(>10mm) cm Est.ejection fraction (50-75%) % DOPPLER: LVIT cm/sec A 94 cm/sec E 75 cm/sec LA cm/sec RVSP 18.0 mmHg LVOT 141 cm/sec AOP1/2T m/s Asc. Ao 163 cm/sec RVOT 110 cm/sec RA cm/sec PA 131 cm/sec AV Gradient Peak 10.6 mmHg AV Mean 5.4 mmHg AV Area 2.6 cm MV Gradient Peak 5.5 mmHg MV Mean 3.5 mmHg MV Area cm COMMENTS: Card Scraper: Dee SCHMITZ Serv[employer] Administrator Developer: Meghan Garnica TAPE# PACS Pericardial Effusion N DATE OF SERVICE: 09/26/2019 FINDINGS: 1. Left ventricular chamber size is within normal limits. Left ventricular systolic function is normal. Overall ejection fraction estimated at 60%. 2. Left atrium, right atrium, right ventricle chamber size is within normal limits. 3. Valvular structures have normal structure and motion. 4. Doppler interrogation reveals no significant valvular insufficiency or ECHOCARDIOGRAM REPORT [id number] DEAN HERNANDEZ stenosis. 5. No evidence of pericardial effusion or left ventricular thrombus. TRANSINT:[id number] Voice Confirmation ID: [id number] DOCUMENT ID: [id number] DINH GARNICA MD CC: [id number] DICTATION DATE: 09/26/19 1258 PHY THERAPIST: 09/26/191956 DIS IN 09/26/19 [facility] [address] [place] [id number]
--- NOTE | ~2019-09-25 | CN ---
PATIENT NAME:DEAN HERNANDEZ MEDICAL RECORD: [id number] : 73 LOCATION:D. D.2117 ADMIT DATE: 09/25/19 ACCOUNT: [id number] CONSULTING PHYSICIAN: DINH GRAJEDA MD REFERRING PHYSICIAN: SULEMA GARCIA MD DATE OF CONSULTATION: 09/25/2019 DIAGNOSES: 1. Non-Q-wave myocardial infarction. 2. Coronary artery disease. Recent PTCA stent, LAD, circumflex. 3. Hypertension. 4. Hyperlipidemia. 5. Noninsulin-dependent diabetes. HISTORY OF PRESENT ILLNESS: Mr. Hernandze presented with a myocardial infarction last week, underwent PTCA stent of LAD and circumflex without outlying last night working and he became very diaphoretic, short of breath with acute onset of chest discomfort. His troponin is positive. In reviewing his film, this is possibly the RCA or the circumflex itself as most likely etiology of this or Plavix nonresponder. He is currently pain free. PHYSICAL EXAMINATION: CONSTITUTIONAL/GENERAL APPEARANCE: Well nourished, well developed, appears stated age. EYES: Lids and conjunctivae noninjected. No discharge. No pallor. ENT: Lips within normal limit. No cyanosis. No pallor. NECK: Carotid arteries, bilateral normal upstroke. No bruits. No thrills. No jugular venous pressure or distention. CERVICAL LYMPH NODES: Nontender. Nonenlarged. THYROID: Not enlarged. No nodules. CARDIOVASCULAR: Precordial exam, nondisplaced. No heaves or pericardial thrills. Rate and rhythm, regular. Heart sounds, normal S1, normal S2. No S3, no gallop, no rub. Systolic murmur, not heard. Diastolic murmur, not heard. RESPIRATORY: Respiratory effort, unlabored. Normal curvature. No thoracic deformity. No chest wall tenderness. Percussion, resonant. Auscultation, clear. No wheezes, no rales, no rhonchi. ABDOMEN: Soft, nondistended, nontender. No abdominal pain, no vomiting and normal appetite. MUSCULOSKELETAL: No joint tenderness, normal gait, normal tone. SKIN: Warm and dry. OVERALL IMPRESSION: Non-Q-wave myocardial infarction in a patient with multivessel percutaneous transluminal coronary angioplasty stent. We will proceed with repeat coronary angiography in the a.m. TRANSINT:[id number] Voice Confirmation ID: [id number] DOCUMENT ID: [id number] CONSULT REPORT [id number] DEAN HERNANDEZ JEFFREY MD CC: [id number] DICTATION DATE: 09/25/19 1116 MONUMENT MASON: 09/25/19 1255 ADM IN [place] [address] [place] [address]
[~2019-09-25 01:33] MED LIST: ASPIRIN81 MG PO; GLUCOPHAGE500 MG PO; METOPROLOL TART50 MG PO; PLAVIX75 MG PO; PRAVACHOL20 MG PO
[2019-09-25 02:05] LABS: BASOPHILS 0 % (0-2); EOSINOPHILS 1.5 % (0-7); HEMATOCRIT 41.2 % (42.0-54.0); HEMOGLOBIN 13.8 g/dL (13.5-17.5); IMMATURE GRANULOCYTES 0.9 % (0-5); LYMPHOCYTES 25.1 % (15-50); MCHC 33.5 g/dL (31.0-37.0); MCV 83.7 fL (80.0-100.0); MEAN PLATELET VOLUME 10.9 fL (7.4-10.4); MONOCYTES 3.4 % (2-11); NEUTROPHILS 69.1 % (40-80); PLATELET COUNT 194 10x3/uL (130-400); RBC 4.92 10x6/uL (4.20-6.10); RDW 12.9 % (11.5-14.5); WBC 9.1 10x3/uL (4.8-10.8)
[2019-09-25 02:12] LABS: CALC OSMOLALITY 290 mosm/kg (275-300); CALCIUM 8.3 mg/dL (8.5-10.1); CARBON DIOXIDE 27.2 mmol/L (21.0-32.0); CHLORIDE - SERUM 103 mmol/L (98-107); CREATININE - SERUM 1.5 mg/dL (0.6-1.3); GLUCOSE 252 mg/dL (74-106); POTASSIUM - SERUM 3.9 mmol/L (3.5-5.1); SODIUM 140 mmol/L (136-145); UREA NITROGEN 21 mg/dL (7-18); eGFR NON AFRICAN AMERICAN 54 mL/min (90-120)
[2019-09-25 02:14] LABS: APTT 44.3 SECONDS (22.8-39.4); INR 1.25 (0.85-1.17); PROTIME 15.1 SECONDS (11.6-15.0)
--- NOTE | 2019-09-25 02:26 | NUR ---
PT RPEORTS CHEST PAIN 2/10 AT THIS TIME PRIOR TO 1ST NITRO BP 147/87 HR 82
[2019-09-25 02:29] LABS: ALBUMIN 3.5 g/dL (3.4-5.0); ALKALINE PHOSPHATASE 90 U/L (46-116); ALT (SGPT) 34 U/L (10-68); BILIRUBIN - TOTAL 0.38 mg/dL (0.2-1.3); CKMB 4.2 U/L (0.0-3.6); CREATINE KINASE 227 UL (21-232); MAGNESIUM - SERUM 1.8 mg/dL (1.8-2.4); PROTEIN - SERUM 7.6 g/dL (6.4-8.2); TROPONIN-I < 0.017 ng/mL (0.000-0.060)
--- NOTE | 2019-09-25 02:34 | NUR ---
PT REPORTS NO RELIEF IN CHEST PAIN AT THIS TIME. PT REPORTS PAIN 11/14 BP 137/72 HR 92 ADVISED EDP NO RELIEF.
[2019-09-25] MEDS ORDERED: METOPROLOL TART50 MG PO (03:31)
[2019-09-25 04:27] LABS: CKMB 3.7 U/L (0.0-3.6); CREATINE KINASE 195 UL (21-232); TROPONIN-I 0.045 ng/mL (0.000-0.060)
--- NOTE | 2019-09-25 04:45 | NUR ---
ADMISSION ASSESSMENT COMPLETED. PT RESTING WITH NO DISTRESS. SR PER TELEMETRY. PLAN OF CARE INITIATED. CALL LIGHT IN REACH.
[2019-09-25 09:12] LABS: CKMB 6.5 U/L (0.0-3.6); CREATINE KINASE 163 UL (21-232)
[2019-09-25 09:14] LABS: TROPONIN-I 0.753 ng/mL (0.000-0.060)
--- NOTE | 2019-09-25 11:50 | NUR ---
CONSENTS SIGNED FOR [facility]. WILL CONT. PLAN OF CARE.
--- NOTE | 2019-09-25 11:50 | NUR ---
CONSENTS SIGNED FOR [facility]. WILL CONT. PLAN OF CARE.
--- NOTE | 2019-09-25 12:54 | NUR ---
URINE SPECIMEN COLLECTED AND TAKEN TO LAB. WILL MONITOR.
[2019-09-25 13:27] LABS: APPEARANCE HAZY (CLEAR); BILIRUBIN NEGATIVE (NEGATIVE); COLOR DK YELLOW (YELLOW); GLUCOSE 50 mg/dL (NEGATIVE); KETONE SMALL mg/dL (NEGATIVE); NITRITE NEGATIVE (NEGATIVE); PROTEIN TRACE mg/dL (NEGATIVE); SPECIFIC GRAVITY 1.025 (1.005-1.020)
[2019-09-25 13:28] LABS: BACTERIA FEW /hpf (NEGATIVE); EPITHELIAL CELLS OCC /hpf (0-5); MUCUS <1+ /lpf (NONE SEEN); RED CELLS - URINE NONE SEEN /hpf (0-5); WHITE CELLS - URINE RARE /hpf (NEGATIVE)
[2019-09-25 13:39] LABS: UDS - AMPHET NEGATIVE QUAL (NEGATIVE); UDS - BARB NEGATIVE QUAL (NEGATIVE); UDS - BENZO NEGATIVE QUAL (NEGATIVE); UDS - COCAINE NEGATIVE QUAL (NEGATIVE); UDS - OPIATE POSITIVE QUAL (NEGATIVE); UDS - PCP NEGATIVE QUAL (NEGATIVE); UDS - THC NEGATIVE QUAL (NEGATIVE)
[2019-09-25 17:15] LABS: PLT FUNCT.(P2Y12) PLAVIX 238 PRU (194-418)
[2019-09-25 17:47] LABS: CKMB 6.3 U/L (0.0-3.6); CREATINE KINASE 134 UL (21-232)
[2019-09-25 17:55] LABS: TROPONIN-I 0.837 ng/mL (0.000-0.060)
--- NOTE | 2019-09-25 20:16 | NUR ---
REPORT AND INITIAL ROUNDS COMPLETED. SR PER TELEMETRY. IV TO RFA WITH LR AT 100ML/HR INFUSING. O2 @ 3L/NC WITH NONLABORED RESPIRATIONS. PT WILL BE NPO AFTER MIDNIGHT FOR AM HEART CATH PER DR GRAJEDA. CPOC.
[2019-09-26 00:30] VITALS: BP 141/78
[2019-09-26 04:03] VITALS: BP 144/86
[2019-09-26 06:02] LABS: BASOPHILS 0.1 % (0-2); EOSINOPHILS 3.1 % (0-7); HEMATOCRIT 39.4 % (42.0-54.0); HEMOGLOBIN 12.9 g/dL (13.5-17.5); IMMATURE GRANULOCYTES 0.4 % (0-5); LYMPHOCYTES 24.6 % (15-50); MCH 27.7 pg (26.0-34.0); MCHC 32.7 g/dL (31.0-37.0); MCV 84.7 fL (80.0-100.0); MEAN PLATELET VOLUME 11.1 fL (7.4-10.4); NEUTROPHILS 64.8 % (40-80); RBC 4.65 10x6/uL (4.20-6.10); RDW 13.3 % (11.5-14.5); WBC 9.3 10x3/uL (4.8-10.8)
[2019-09-26 06:26] LABS: CALCIUM 8.2 mg/dL (8.5-10.1); CARBON DIOXIDE 26.4 mmol/L (21.0-32.0); CHLORIDE - SERUM 106 mmol/L (98-107); PLATELET COUNT 153 10x3/uL (130-400); POTASSIUM - SERUM 4.1 mmol/L (3.5-5.1); SODIUM 140 mmol/L (136-145)
[2019-09-26 06:29] LABS: CALC OSMOLALITY 280 mosm/kg (275-300); CREATININE - SERUM 0.9 mg/dL (0.6-1.3); GLUCOSE 109 mg/dL (74-106); UREA NITROGEN 14 mg/dL (7-18); eGFR NON AFRICAN AMERICAN > 90 mL/min (90-120)
--- NOTE | 2019-09-26 06:45 | NUR ---
NO CHANGE FROM INITIAL SHIFT ASSESSMENT. HAS BEEN NPO SINCE MIDNIGHT FOR HEART CATH THIS MORNING. ALL AM PREP FOR CATH COMPLETED. CPOC.
[2019-09-26 08:17] VITALS: BP 141/79
--- NOTE | 2019-09-26 10:56 | NUR ---
PT TO INSURANCE VERIFICATION SPECIALIST.
--- NOTE | 2019-09-26 12:49 | NUR ---
RECEIVED PT BACK TO ROOM 2116, PT A/O X4, RESP EVEN AND NONLABORED ON RA. VITAL SIGNS STABLE, PLACED PT ON FREQUENT VITAL SIGNS, FEMSTOP NOTED TO RT GROIN, PULSE PALPABLE, NO S/S OF BLEEDING OR HEMATOMA. PT DENIES ANY NEEDS AT THIS TIME. CALL LIGHT IN REACH, NAD NOTED,W ILL CONTINUE TO MONITOR.
--- NOTE | 2019-09-26 13:56 | NUR ---
4MG OF MORPHINE GIVEN FOR PAIN LEVEL OF 8/10. PT DENIES ANY NEEDS AT THIS TIME. NO CHANGES TO RT GROIN FROM PREVIOUS ASSESSMENT. PROVIDED PT WITH FRESH CUP OF ICE WATER. CALL LIGHT IN REACH, NAD NOTED, WILL CONTINUE TO MONITOR.
[2019-09-26 14:43] VITALS: Ht 188 cm; Wt 126.6 kg
[2019-09-26 15:45] VITALS: BP 137/83
[2019-09-26] MEDS ORDERED: BAYER CHEWABLE81 MG PO (15:56)
--- NOTE | 2019-09-26 17:34 | MORECARE ---
CASE MANAGEMENT DISCHARGE SUMMARY PATIENT: DEAN HERNANDEZ UNIT: [id number] ADM DATE: 09/25/19 AGE: 43 : [birth year] SEX: M ROOM/BED: D.7460 AUTHOR: SHANE,DOC PHYSICIAN: REFERRING PHYSICIAN: SULEMA GARCIA MD DATE OF SERVICE: 09/26/19 Discharge Plan Patient Name: DEAN HERNANDEZ Facility: [facility]:[place] : 1975 Planned Disposition: Home Anticipated Discharge Date: 09/26/19 Discharge Date: Expected LOS: 1 Initial Reviewer: [email or web address] Initial Review Date: 09/26/2019 Generated: 09/26/19 6:34 pm Comments DCP- Discharge Planning Updated by [email or web address]: Ray Jameson on 09/26/19 4:[address] Patient Name: DEAN HERNANDEZ Admission Status: ER Accout number: [id number] Admission Date: 09-25-2019 : 1975 Admission Diagnosis: Attending: SULEMA GARCIA Current LOS: 1 Anticipated DC Date: 09-26-2019 Planned Disposition: Home Primary Insurance: UNINSURED DISCOUNT PLAN Discharge Planning Comments: CM MET WITH PT IN ROOM TO DISCUSS DISCHARGE PLANNING AND NEEDS. PT REPORTS LIVING AT HOME INDEPENDENTLY AND ALONE. PT HAS NO MEDICAL EQUIPMENT AND NO OUTSIDE SERVICES ASSISTING IN THE HOME. CM DISCUSSED AVAILABILITY OF HOME HEALTH, REHAB SERVICES AND MEDICAL EQUIPMENT. PT DENIES DISCHARGE NEEDS, REPORTS HIS FRIEND WILL PICK HIM UP FOR DISCHARGE HOME. Decorating Inspector: Ray Jameson DCPIA - Discharge Planning Initial Assessment Updated by [email or web address]: Ray Jameson on 09/26/19 5:29 pm * Is the patient Alert and Oriented? Yes * How many steps to enter\exit or inside your home? 30 * PCP NONE * [facility] [address] * Preadmission Environment Home Alone * ADLs Independent * Equipment None * Other Equipment NO MEDICAL EQUIPMENT PROVIDER PREFERNECE * List name and contact numbers for known caregivers / representatives who currently or will assist patient after discharge: MARIBEL HERNANDEZ, , * Verbal permission to speak to the caregivers and representatives has been obtained from the patient. N/A * Community resources currently utilized None * Please name any agencies selected above. NONE * Additional services required to return to the preadmission environment? No * Can the patient safely return to the preadmission environment? Yes * Has this patient been hospitalized within the prior 30 days at any hospital? No Patient Name: DEAN HERNANDEZ Page [phone] at 1734 All edits/amendments must be made on the electronic document DICTATION DATE: 09/26/191733 BUILDING PRESSURE WASHER: DAMIAN 09/26/191733 RPT#: [id number] DC DATE: STATUS: ADM IN [facility] [address] [place] [address] END OF REPORT
--- NOTE | 2019-09-26 18:52 | NUR ---
PT LEFT UNIT VIA WHEELCHAIR WITH ALL BELONGINS, ACCOMPANIED BY FAMILY, NAD NOTED.
== END 2019-09-26 18:52 | disposition home or self-care (01) | DRG 249 ==
LOC: D.ER 01:33 → D.M2 02:41 → OBSVTIME 02:41 → D.M2 13:20
PROVIDERS: Emergency Medicine; Internal Medicine Interventional Cardiology; ADMIT Internal Medicine Nephrology; ATTEND Internal Medicine Nephrology
PROC: B2111ZZ Fluoroscopy of Multiple Coronary Arteries using Low Osmolar Contrast (ICD-10-PCS; 2019-09-26)
PROC: B2151ZZ Fluoroscopy of Left Heart using Low Osmolar Contrast (ICD-10-PCS; 2019-09-26)
PROC: 02703DZ Dilation of Coronary Artery, One Artery with Intraluminal Device, Percutaneous Approach (ICD-10-PCS; principal; 2019-09-26 10:45)
PROC: 4A023N7 Measurement of Cardiac Sampling and Pressure, Left Heart, Percutaneous Approach (ICD-10-PCS; 2019-09-26 10:45)
DX: I21.A1 Myocardial infarction type 2 (principal); N17.9 Acute kidney failure, unspecified; E11.65 Type 2 diabetes mellitus with hyperglycemia; I10 Essential (primary) hypertension; I25.110 Atherosclerotic heart disease of native coronary artery with unstable angina pectoris; E03.9 Hypothyroidism, unspecified; K21.9 Gastro-esophageal reflux disease without esophagitis; E11.40 Type 2 diabetes mellitus with diabetic neuropathy, unspecified